=== PATIENT | male | born 1960 | race Caucasian/White ===

== ENCOUNTER 2021-01-31 13:41 | IRF | payer OTHER, SELFPAY ==
--- NOTE | ~2021-01-31 | XR_ITS ---
EXAMINATION: XR barium swallow modified EXAM DATE: 02/08/2021 09:22 INDICATION: Dysphagia. TECHNIQUE: Modified barium esophagram was performed by myself to administered fluoroscopy, in conjun ction with speech pathologist who administered barium in varying consistencies as per speech patholog ist documentation. This was recorded on tape. Pulsed dose reduction fluoroscopy was used with fluor oscopic time of 0.9 minutes. A total of 1 images obtained for the exam. The DAP for this procedure was 0.6 Gycm2. FINDINGS: Oral stage: Adequate function. Pharyngeal phase: Reduced laryngeal elevation. Laryngeal penetration: Demonstrated, thin liquids. Aspiration: None. Laryngeal sensitivity: Inconsistent. IMPRESSION: Oral feedings recommended with limitations as per speech pathologist. Please refer to s artie pathologist findings and specific feeding recommendations. Reviewed, dictated and finalized at location A. IMPRESSION: Oral feedings recommended with limitations as per speech pathologis t. Please refer to speech pathologist findings and specific feeding recommend ations.
--- NOTE | 2021-01-31 13:26 | ADMGEN ---
This patient, Jesus Key, was admitted to [facility] Room 222-02. Patient/family oriented to hospital policies and general routines including ID bracelet, bed and alarms, visiting hours, pain management, procedures, bathroom and other care routines, personal items, smoking policy, room service/diet, and visiting hours. Information on how to activate the Rapid Response Team has been discussed. Patient/Family are encouraged to report perceived risks to care and to ask questions if they do not understand what they are told or what they should do.
[2021-01-31 14:00] VITALS: BP 118/65; PULSE 71; RESP 20; TEMP 36.7; O2SAT 96
[2021-01-31] MEDS: hydrALAZINE HCL 50 MG TABLET PO ×2 (15:30→21:01)
[2021-01-31 15:53] VITALS: BMI 22.6
--- NOTE | 2021-01-31 16:49 | WPDREHABHP ---
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 NIH SS upon arrival was 10. WORKUP CT of the brain showed no acute intracranial hemorrhage and a chronic right occipital lobe infarct. 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 MRI of the brain showed a small acute ischemic infarct in the posterior limb of the left internal capsule. Andi showed no PFO or thrombus. Fes was performed and the patient was placed on pureed diet with nectar thickened liquids. Neurology was consulted and patient was placed on aspirin, Plavix, and Atrovent statin. Patient is severely dysarthric and communicating via white board he is alert and oriented x3. Patient demonstrates dense right UE hemiplegia with mild/mod LE hemipegia. patient has decreased balance and safety awareness. He will be discharged to rehab on Plavix and will remain on Plavix until completing a 21 day course COVID the patient has not traveled outside the [place] her head contact with someone who is ill that has traveled outside the [place] in the past 21 days. Patient has not traveled to an area of the [place] that is experiencing no transmission of Coronavirus and has not had close personal contact with anyone that has. Patient does not have a fever. The patient is not experiencing lower respiratory illness symptoms. The patient tested negative for COVID on 01/22/2021 and 01/30/2021. HISTORY OF PRESENT ILLNESS: The patient's primary rehab impairment category is 0 1-stroke The etiologic diagnosis is left internal capsular infarct I saw this patient [id number] on 01/31/2021 Therapy was initiated at the acute care facility and the patient transferred to us from [facility] on 01/31/2021 FALLS OR SURGERIES: The patient has had [no] major surgeries in the 100 days prior to admission. They had [no] falls in the past year. They had [no] falls with injury in the past year. PRIOR LEVEL OF FUNCTION: Eating was [INDEPENDENT] Oral Care was [INDEPENDENT] Toileting Hygiene was [INDEPENDENT] Shower/Bathing was [INDEPENDENT] Upper Body Dressing was [INDEPENDENT] Lower Body Dressing was [INDEPENDENT] Donning/[place] Footwear was [INDEPENDENT] Rolling Left and Right was [INDEPENDENT] Sit to Lying was [INDEPENDENT] Lying to Sitting was [INDEPENDENT] Sit to Stand was [INDEPENDENT] Bed to Chair Transfers was [INDEPENDENT] Toilet Transfers was [INDEPENDENT] Walking was [INDEPENDENT] [>500 feet] with [NO DEVICE] Wheelchair Mobility was [NOT APPLICABLE PRIOR TO ADMISSION] Stairs were [INDEPENDENT] CURRENT LEVEL OF FUNCTION: Eating was supervision or touching assistance Oral Care was partial to moderate assist Toileting Hygiene was substantial to maximal assist Shower/Bathing was substantial to maximal assist Upper Body Dressing was partial to moderate assist Lower Body Dressing was substantial to maximal assist Donning/[place] Footwear was substantial to maximal assist Rolling Left and Right was partial to moderate assist Sit to Lying was partial to moderate assist Lying to Sitting was partial to moderate assist Sit to Stand was partial to moderate assist Bed to Chair Transfers were partial to moderate assist Toilet Transfers were partial to moderate assist Walking was 20 ft with a ayesha walker and partial to moderate assistance Wheelchair Mobility was not tested Stairs were not tested GOALS: Our therapists will evaluate the patient and establish the goals. However, upon pre-admission screening, the expected goals w
[2021-01-31] MEDS: ATORVASTATIN 40 MG TABLET 80 MG PO (20:53)
[2021-01-31 20:57] VITALS: BP 117/59; PULSE 68; RESP 18; TEMP 36.5; O2SAT 97
[2021-02-01 05:19] VITALS: BP 116/60; PULSE 72; RESP 18; TEMP 36.1; O2SAT 97
[2021-02-01 05:41] LABS: Basophils Absolute Auto 0.2 K/mm3 (0.0-0.1); Basophils Percent Auto 1.9 % (0.2-1.2); Eosinophils Absolute Auto 0.4 K/mm3 (0-0.3); Eosinophils Percent Auto 3.4 % (0-4.4); Hematocrit 52.6 % (42.0-52.0); Hemoglobin 17.6 g/dL (14.0-18.0); Immature Granulocyte Absolute 0.07 K/mm3 (0.00-0.031); Immature Granulocyte Percent A 0.7 % (0-0.5); Lymphocytes Absolute Auto 1.58 K/mm3 (0.9-3.2); Lymphocytes Percent Auto 15.4 % (18.3-44.2); Mean Corpuscular HGB Conc 33.5 g/dl (32-36); Mean Corpuscular Hemoglobin 31.7 pg (26-34); Mean Corpuscular Volume 94.6 fl (80-100); Monocytes Absolute Auto 1.6 K/mm3 (0.1-0.6); Monocytes Percent Auto 15.6 % (2.6-8.5); Neutrophils Absolute Auto 6.5 K/mm3 (1.3-6.7); Platelet Count Result 338 k/mm3 (150-375); Red Blood Count 5.56 M/mm3 (4.6-6.20); Red Cell Distribution Width 12.6 % (11.5-14.5); White Blood Count 10.3 K/mm3 (4.5-10.0)
[2021-02-01 05:51] LABS: Cholesterol 83 mg/dL (0-200); HDL Direct 25 mg/dL; Triglycerides 66 mg/dL (<150)
[2021-02-01 06:02] LABS: LDL Cholesterol Direct 41 mg/dL
[2021-02-01] MEDS: hydrALAZINE HCL 50 MG TABLET PO ×3 (06:23→21:02)
[2021-02-01 06:30] LABS: Alanine Aminotransferase 22 U/L (4-50); Albumin Level 4.2 g/dL (3.5-5.1); Alkaline Phosphatase 73 U/L (38-126); Anion Gap 6 mmol/L (8-16); Aspartate Amino Transferase 28 U/L (17-59); Bilirubin,Total 0.7 mg/dL (0.2-1.3); Blood Urea Nitrogen 42 mg/dL (9-20); Calcium 9.6 mg/dL (8.4-10.2); Carbon Dioxide 31 mmol/L (22-30); Chloride 98 mmol/L (98-107); Estimated CRCL calculation 56 ml/min; Estimated Glomerular Filt Rate > 60; Glucose 94 mg/dL (75-110); Sodium 135 mmol/L (137-145)
[2021-02-01 08:00] VITALS: PULSE 72; RESP 18; O2SAT 97
[2021-02-01] MEDS: amLODIPine BESYLATE 5 MG TABLET 10 MG PO (08:42)
[2021-02-01] MEDS: CLOPIDOGREL BISULFATE 75 MG TABLET PO (08:43)
[2021-02-01] MEDS: FLUoxetine HCL 20 MG CAPSULE PO (08:43)
[2021-02-01] MEDS: ASPIRIN 81 MG CHEWABLE TABLET PO (08:43)
[2021-02-01] MEDS: hydroCHLOROthiazide 25 MG TABLET 50 MG PO (08:43)
[2021-02-01] MEDS: ENOXAPARIN 40 MG/0.4 ML SYRINGE SUB-Q (08:43)
[2021-02-01] MEDS: LOSARTAN POTASSIUM 100 MG TABLET PO (08:43)
[2021-02-01 13:17] VITALS: BMI 22.6
[2021-02-01 14:00] VITALS: BP 114/50; PULSE 65; RESP 18; TEMP 36.1; O2SAT 98
--- NOTE | 2021-02-01 14:05 | PCSTNOTE ---
Please refer to the Bedside Swallow Evaluation in the EMR. Please note, silent aspiration cannot be ruled out at bedside.
--- NOTE | 2021-02-01 17:09 | WPDNEURORHBP ---
Subjective Date/time seen: 02/01/21 17:09 Interval history: 60-year-old gentleman with past medical history of hypertension hyperlipidemia who presented to [facility] on 01/21/2021 with slurred speech and right hemiplegia. MRI of the brain showed a small infarct in the posterior limb of the left internal capsule. Patient was placed on aspirin, Plavix and a statin. Patient is to continue on Plavix for a complete 21 day course. Patient voices no complaints today. Patient able to tolerate 3 hours of therapy. Review of Systems Review of Systems: All systems reviewed & are unremarkable except as noted in HPI and below Functional Status Ambulation Ability Ability to Ambulate 10 Feet: Minimum Assistance X 1 Ability to Ambulate 50 Feet With 2 Turns: Minimum Assistance X 1 Ambulation Assistive Devices: Cane, [place] Exam Narrative: Exam Narrative: Patient is seen at lunch in w/c. Significant right facial droop is noted. Patient is essentially unable to form sentences or single words. There is vocalization. Extraocular muscles are intact neck is supple. Heart rate and rhythm is regular. Lungs are clear. Upper airway congestion noted. Abdomen is was soft nontender left upper and left lower extremity strength are 4+ out of 5 right upper extremity strength is essentially flaccid. Right lower extremity strength is 3/5. Objective Data Vital Signs Vital Signs: Vital Signs - 24 hr 01/31/21 20:57 02/01/21 05:19 02/01/21 08:00 Temperature 36.5 C 36.1 C L Pulse Rate 68 72 72 Respiratory Rate 18 18 18 Blood Pressure 117/59 L 116/60 Pulse Oximetry 97 97 97 02/01/21 14:00 Temperature 36.1 C L Pulse Rate 65 Respiratory Rate 18 Blood Pressure 114/50 L Pulse Oximetry 98 Intake/Output Intake/Output: Intake & Output 01/29/21 01/30/21 01/31/21 02/01/21 23:59 23:59 23:59 23:59 Intake Total 240 480 Balance 240 480 Meds/Results Medications: Active Medications Generic Name Dose Route Start Last Admin Trade Name Freq PRN Reason Stop Dose Admin Amlodipine Besylate 10 mg 02/01/21 09:00 02/01/21 08:42 Amlodipine Besylate 5 Mg Tablet PO 10 mg DAILY LANIE Administration Aspirin 81 mg 02/01/21 09:00 02/01/21 08:43 Aspirin 81 Mg Chewable Tablet PO 81 mg DAILY LANIE Administration Atorvastatin Calcium 80 mg 01/31/21 21:00 01/31/21 20:53 Atorvastatin 40 Mg Tablet PO 80 mg HS LANIE Administration Clopidogrel Bisulfate 75 mg 02/01/21 09:00 02/01/21 08:43 Clopidogrel Bisulfate 75 Mg Tablet PO 02/15/21 09:01 75 mg DAILY LANIE Administration Enoxaparin Sodium 40 mg 02/01/21 09:00 02/01/21 08:43 Enoxaparin 40 Mg/0.4 Ml Syringe SUB-Q 40 mg DAILY LANIE Administration Fluoxetine HCl 20 mg 02/01/21 09:00 02/01/21 08:43 Fluoxetine Hcl 20 Mg Capsule PO 20 mg DAILY LANIE Administration Hydralazine HCl 50 mg 01/31/21 15:20 02/01/21 14:36 Hydralazine Hcl 50 Mg Tablet PO 50 mg Q8HR LANIE Administration Hydrochlorothiazide 50 mg 02/01/21 09:00 02/01/21 08:43 Hydrochlorothiazide 25 Mg Tablet PO 50 mg DAILY LANIE Administration Losartan Potassium 100 mg 02/01/21 09:00 02/01/21 08:43 Losartan Potassium 100 Mg Tablet PO 100 mg DAILY LANIE Administration Labs Labs: Laboratory Results - last 24 hr 02/01/21 02/01/21 02/01/21 04:31 04:31 04:31 WBC 10.3 H RBC 5.56 Hgb 17.6 Hct 52.6 H MCV 94.6 MCH 31.7 MCHC 33.5 RDW 12.6 Plt Count 338 MPV 10.0 Immature Gran % (Auto) 0.7 H Neut % (Auto) 63.0 Lymph % (Auto) 15.4 L Patrick % (Auto) 15.6 H Eos % (Auto) 3.4 Baso % (Auto) 1.9 H Lymph # (Auto) 1.58 Patrick # (Auto) 1.6 H Eos # (Auto) 0.4 H Baso # (Auto) 0.2 H Abs Immat Gran (auto) 0.07 H Absolute Neuts (auto) 6.5 Absolute Nucleated RBC 0.0 Nucleated RBC % 0.0 Sodium 135 L Potassium 4.0 Chloride 98 Carbon Dioxide 31 H Anion Gap 6 L BUN 42 H C
--- NOTE | 2021-02-01 18:12 | RPD ---
INDIVIDUALIZED PLAN OF CARE FOR Jesus Key Brief Synthesis of Pre-Admission Screen, Post-Admission Evaluation and Therapy Evaluations: The patient presents to rehab with left internal capsule infarct. Comorbidities include hypertension, hyperlipidemia, right-sided weakness, dysarthria, facial droop, and dysphagia. The complexity of the patient's medical management, nursing, and therapy needs require an inpatient rehab hospital stay with a physician-led interdisciplinary team approach. The patient?s needs will be best met in an intensive program vs. at a lower level of care. The patient requires physician services for medical oversight and coordination of care. Emotional needs will be monitored as depression is a common sequelae of stroke. The patient needs physician monitoring and treatment of hypertension, dysphagia, monitoring for adverse reactions to new medications, monitoring of infection, and pain control. The patient requires nursing services for frequent neuro checks, anticoagulation therapy, medication management and education, pressure relief and skin care management, monitoring of labs, and fall/safety precautions. The patient will participate in stroke-specific education regarding risk modification to decrease the risk of further stroke; the family will also be invited to participate. Deficits include:ADLs, Balance, Cognition, Endurance, Family Training/Education, Mobility, ROM, Safety, Speech, Strength, Swallowing, Transfers Drug Discovery Informatics Specialist/Case Management for: Discharge Planning and Patient/Family Counseling Physical Therapy: 5 days per week for 60 minutes. Treatments may include: Therapeutic Exercise, Gait Training, Neuromuscular Re-education, Transfer Training, Community Reintegration, Bed Mobility, Patient/Family Education, Wheelchair Mobility Group Therapy/Concurrent Therapy Rationales: -Improve attention span during functional activities in a distracted environment. -Enhance problem solving and/or adequate judgment skills during functional activities in a distracted environment. -Promote increased safety awareness in a distracted environment to reduce fall risk with functional tasks, transfers, and ambulation to allow a more safe, self-sufficient return to the home environment. -Improve dynamic balance skills to promote safety and independence with functional activities in a distracted environment for maximum gain. Occupational Therapy: 5 days per week for 60 minutes. Treatments may include: Therapeutic Exercise, Therapeutic Activity, Cognitive Training, Self-Care Transfer Training, Community Reintegration, Home Management, Patient/Family Education, Wheelchair Mobility Training, Energy Conservation Training Group Therapy/Concurrent Therapy Rationales: -Allow therapist to observe and teach generalization and carry-over of skills learned in individual therapy. -Enhance problem solving and sequencing skills during therapeutic activities in a distracted environment. -Promote increased safety awareness in a realistic setting to reduce fall risk with functional tasks due to visual and verbal distractions. -Increase functional level with ADLs, ADL transfers and use of adaptive equipment through therapeutic activities with others while promoting safety to allow a more safe, self-sufficient return home. Speech Therapy: 5 days per week for 60 minutes. Treatments may include: Dysphasia Therapy, Speech/Language/Communication Therapy, Cognitive Training, Patient/Family Education Group Therapy/Concurrent Therapy - Rationale: -Allow therapist to observe and teach generalization and carry-over of skills learned in individual therapy. -Improve comprehension skills with complex or abstract ideas through discussion in a realistic setting. -Enhance problem solving skills with complex issues during activities in a distracted environment. -Promote increased memory skills and concentration in a distracted environment for a safe transition home. -Improve attention and
[2021-02-01 20:00] VITALS: PULSE 69; RESP 16; O2SAT 97
[2021-02-01] MEDS: ATORVASTATIN 40 MG TABLET 80 MG PO (21:02)
[2021-02-01 21:29] VITALS: BP 121/71; PULSE 69; RESP 16; TEMP 36.7; O2SAT 97
[2021-02-02 05:16] VITALS: BP 119/67; PULSE 79; RESP 16; TEMP 36.3; O2SAT 99
[2021-02-02] MEDS: hydrALAZINE HCL 50 MG TABLET PO ×2 (06:20→15:17)
[2021-02-02] MEDS: CLOPIDOGREL BISULFATE 75 MG TABLET PO (07:52)
[2021-02-02] MEDS: ASPIRIN 81 MG CHEWABLE TABLET PO (07:52)
[2021-02-02] MEDS: hydroCHLOROthiazide 25 MG TABLET 50 MG PO (07:53)
[2021-02-02] MEDS: amLODIPine BESYLATE 5 MG TABLET 10 MG PO (07:53)
[2021-02-02] MEDS: FLUoxetine HCL 20 MG CAPSULE PO (07:53)
[2021-02-02] MEDS: LOSARTAN POTASSIUM 100 MG TABLET PO (07:53)
[2021-02-02] MEDS: ENOXAPARIN 40 MG/0.4 ML SYRINGE SUB-Q (07:54)
--- NOTE | 2021-02-02 09:34 | WPDNEURORHBP ---
Subjective Date/time seen: 02/02/21 09:34 Interval history: 60-year-old gentleman with past medical history of hypertension hyperlipidemia who presented to [facility] on 01/21/2021 with slurred speech and right hemiplegia. MRI of the brain showed a small infarct in the posterior limb of the left internal capsule. Patient was placed on aspirin, Plavix and a statin. Patient is to continue on Plavix for a complete 21 day course. Patient wanting to eat in room. Patient has demonstrated good feeding technique without s/s of aspiration. Patient may eat in his room. Patient able to tolerate 3 hours of therapy. Review of Systems Review of Systems: All systems reviewed & are unremarkable except as noted in HPI and below Functional Status Ambulation Ability Ability to Ambulate 10 Feet: Minimum Assistance X 1 Ability to Ambulate 50 Feet With 2 Turns: Minimum Assistance X 1 Ambulation Assistive Devices: Cane, [place] Exam Narrative: Exam Narrative: Patient is seen at lunch in w/c. Significant right facial droop is noted. Patient is essentially unable to form sentences or single words. There is vocalization. Extraocular muscles are intact neck is supple. Heart rate and rhythm is regular. Lungs are clear. Upper airway congestion noted. Abdomen is was soft nontender left upper and left lower extremity strength are 4+ out of 5 right upper extremity strength is essentially flaccid. Right lower extremity strength is 3/5. Minimal subluxation present Objective Data Vital Signs Vital Signs: Vital Signs - 24 hr 02/01/21 14:00 02/01/21 20:00 02/01/21 21:29 Temperature 36.1 C L 36.7 C Pulse Rate 65 69 69 Respiratory Rate 18 16 16 Blood Pressure 114/50 L 121/71 Pulse Oximetry 98 97 97 02/02/21 05:16 Temperature 36.3 C L Pulse Rate 79 Respiratory Rate 16 Blood Pressure 119/67 Pulse Oximetry 99 Intake/Output Intake/Output: Intake & Output 01/30/21 01/31/21 02/01/21 02/02/21 23:59 23:59 23:59 23:59 Intake Total 240 720 240 Balance 240 720 240 Meds/Results Medications: Active Medications Generic Name Dose Route Start Last Admin Trade Name Freq PRN Reason Stop Dose Admin Amlodipine Besylate 10 mg 02/01/21 09:00 02/02/21 07:53 Amlodipine Besylate 5 Mg Tablet PO 10 mg DAILY LANIE Administration Aspirin 81 mg 02/01/21 09:00 02/02/21 07:52 Aspirin 81 Mg Chewable Tablet PO 81 mg DAILY LANIE Administration Atorvastatin Calcium 80 mg 01/31/21 21:00 02/01/21 21:02 Atorvastatin 40 Mg Tablet PO 80 mg HS LANIE Administration Clopidogrel Bisulfate 75 mg 02/01/21 09:00 02/02/21 07:52 Clopidogrel Bisulfate 75 Mg Tablet PO 02/15/21 09:01 75 mg DAILY LANIE Administration Enoxaparin Sodium 40 mg 02/01/21 09:00 02/02/21 07:54 Enoxaparin 40 Mg/0.4 Ml Syringe SUB-Q 40 mg DAILY LANIE Administration Fluoxetine HCl 20 mg 02/01/21 09:00 02/02/21 07:53 Fluoxetine Hcl 20 Mg Capsule PO 20 mg DAILY LANIE Administration Hydralazine HCl 50 mg 01/31/21 15:20 02/02/21 06:20 Hydralazine Hcl 50 Mg Tablet PO 50 mg Q8HR LANIE Administration Hydrochlorothiazide 50 mg 02/01/21 09:00 02/02/21 07:53 Hydrochlorothiazide 25 Mg Tablet PO 50 mg DAILY LANIE Administration Losartan Potassium 100 mg 02/01/21 09:00 02/02/21 07:53 Losartan Potassium 100 Mg Tablet PO 100 mg DAILY LANIE Administration Progress Note: A&P Assessment and Plan (1) CVA (cerebral vascular accident): Code(s): I63.9 - Cerebral infarction, unspecified Status: Acute Assessment and Plan: Stroke is being treated with Plavix until 21 day full course along with aspirin and a statin. Patient will receive PT OT speech (2) Dysphagia: Code(s): R13.10 - Dysphagia, unspecified Status: Acute Assessment and Plan: patient is on a pureed diet with nectar thickened liquids. Speech will continue to work with oral motor exercises and speech. Goal is to i
[2021-02-02 14:00] VITALS: BP 105/52; PULSE 75; RESP 18; TEMP 36.7; O2SAT 97
[2021-02-02 20:30] VITALS: PULSE 69; RESP 16; O2SAT 98
[2021-02-02] MEDS: ATORVASTATIN 40 MG TABLET 80 MG PO (21:05)
[2021-02-02] MEDS: MELATONIN 3 MG TABLET PO (21:05)
[2021-02-02 22:00] VITALS: BP 107/51; PULSE 69; RESP 16; TEMP 36.4; O2SAT 98
[2021-02-03] MEDS: hydrALAZINE HCL 50 MG TABLET PO ×2 (05:47→14:49)
[2021-02-03 06:00] VITALS: BP 121/51; PULSE 60; RESP 16; TEMP 36.1; O2SAT 97
[2021-02-03] MEDS: amLODIPine BESYLATE 5 MG TABLET 10 MG PO (09:13)
[2021-02-03] MEDS: ASPIRIN 81 MG CHEWABLE TABLET PO (09:13)
[2021-02-03] MEDS: FLUoxetine HCL 20 MG CAPSULE PO (09:13)
[2021-02-03] MEDS: ENOXAPARIN 40 MG/0.4 ML SYRINGE SUB-Q (09:13)
[2021-02-03] MEDS: hydroCHLOROthiazide 25 MG TABLET 50 MG PO (09:13)
[2021-02-03] MEDS: CLOPIDOGREL BISULFATE 75 MG TABLET PO (09:13)
[2021-02-03] MEDS: LOSARTAN POTASSIUM 100 MG TABLET PO (09:13)
--- NOTE | 2021-02-03 09:21 | WPDNEURORHBP ---
Subjective Date/time seen: 02/03/21 09:21 Interval history: 60-year-old gentleman with past medical history of hypertension hyperlipidemia who presented to [facility] on 01/21/2021 with slurred speech and right hemiplegia. MRI of the brain showed a small infarct in the posterior limb of the left internal capsule. Patient was placed on aspirin, Plavix and a statin. Patient is to continue on Plavix for a complete 21 day course. Patient wanting to eat in room. Patient has demonstrated good feeding technique without s/s of aspiration. Patient may eat in his room. Patient able to tolerate 3 hours of therapy. Patient states that he did not sleep well last night. Nursing reports that patient had a sound night sleep. Review of Systems Review of Systems: All systems reviewed & are unremarkable except as noted in HPI and below Functional Status Ambulation Ability Ability to Ambulate 10 Feet: Minimum Assistance X 1 Ability to Ambulate 50 Feet With 2 Turns: Minimum Assistance X 1 Ambulation Assistive Devices: Cane, [place] Exam Narrative: Exam Narrative: Patient is seen in w/c. Significant right facial droop is noted. Patient is beginning to form single words and is making his needs known. There is vocalization but dysarthria is severe. Extraocular muscles are intact Neck is supple. Heart rate and rhythm is regular. Lungs are clear. Abdomen is was soft nontender Left upper and left lower extremity strength are 4+ out of 5 right upper extremity strength is essentially flaccid. Right lower extremity strength is 3/5. Minimal subluxation present Objective Data Vital Signs Vital Signs: Vital Signs - 24 hr 02/02/21 14:00 02/02/21 20:30 02/02/21 22:00 Temperature 36.7 C 36.4 C L Pulse Rate 75 69 69 Respiratory Rate 18 16 16 Blood Pressure 105/52 L 107/51 L Pulse Oximetry 97 98 98 02/03/21 06:00 Temperature 36.1 C L Pulse Rate 60 Respiratory Rate 16 Blood Pressure 121/51 L Pulse Oximetry 97 Intake/Output Intake/Output: Intake & Output 01/31/21 02/01/21 02/02/21 02/03/21 23:59 23:59 23:59 23:59 Intake Total 240 720 720 240 Balance 240 720 720 240 Meds/Results Medications: Active Medications Generic Name Dose Route Start Last Admin Trade Name Freq PRN Reason Stop Dose Admin Amlodipine Besylate 10 mg 02/01/21 09:00 02/03/21 09:13 Amlodipine Besylate 5 Mg Tablet PO 10 mg DAILY ALNIE Administration Aspirin 81 mg 02/01/21 09:00 02/03/21 09:13 Aspirin 81 Mg Chewable Tablet PO 81 mg DAILY LANIE Administration Atorvastatin Calcium 80 mg 01/31/21 21:00 02/02/21 21:05 Atorvastatin 40 Mg Tablet PO 80 mg HS LANIE Administration Clopidogrel Bisulfate 75 mg 02/01/21 09:00 02/03/21 09:13 Clopidogrel Bisulfate 75 Mg Tablet PO 02/15/21 09:01 75 mg DAILY LANIE Administration Enoxaparin Sodium 40 mg 02/01/21 09:00 02/03/21 09:13 Enoxaparin 40 Mg/0.4 Ml Syringe SUB-Q 40 mg DAILY LANIE Administration Fluoxetine HCl 20 mg 02/01/21 09:00 02/03/21 09:13 Fluoxetine Hcl 20 Mg Capsule PO 20 mg DAILY LANIE Administration Hydralazine HCl 50 mg 01/31/21 15:20 02/03/21 05:47 Hydralazine Hcl 50 Mg Tablet PO 50 mg Q8HR LANIE Administration Hydrochlorothiazide 50 mg 02/01/21 09:00 02/03/21 09:13 Hydrochlorothiazide 25 Mg Tablet PO 50 mg DAILY LANIE Administration Losartan Potassium 100 mg 02/01/21 09:00 02/03/21 09:13 Losartan Potassium 100 Mg Tablet PO 100 mg DAILY LANIE Administration Melatonin 3 mg 02/02/21 21:00 02/02/21 21:05 Melatonin 3 Mg Tablet PO 3 mg HS LANIE Administration Progress Note: A&P Assessment and Plan (1) CVA (cerebral vascular accident): Code(s): I63.9 - Cerebral infarction, unspecified Status: Acute Assessment and Plan: Stroke is being treated with Plavix until 21 day full course along with aspirin and a statin. Patient will receive PT OT speech (2) Dysphagia: Code(s)
[2021-02-03 14:00] VITALS: BP 101/55; PULSE 54; RESP 18; TEMP 36.5; O2SAT 95
[2021-02-03 19:25] VITALS: BP 128/55; PULSE 80; RESP 16; TEMP 36.4; O2SAT 97
[2021-02-03] MEDS: ATORVASTATIN 40 MG TABLET 80 MG PO (20:47)
[2021-02-03] MEDS: MELATONIN 5 MG TABLET PO (20:47)
[2021-02-03 22:12] VITALS: BP 107/57; PULSE 68; RESP 20; TEMP 36.4; O2SAT 96
[2021-02-04 06:00] VITALS: BP 125/63; PULSE 71; RESP 16; TEMP 36.4; O2SAT 97
[2021-02-04] MEDS: hydrALAZINE HCL 50 MG TABLET PO ×3 (06:15→21:32)
[2021-02-04] MEDS: amLODIPine BESYLATE 5 MG TABLET 10 MG PO (09:04)
[2021-02-04] MEDS: FLUoxetine HCL 20 MG CAPSULE PO (09:05)
[2021-02-04] MEDS: CLOPIDOGREL BISULFATE 75 MG TABLET PO (09:05)
[2021-02-04] MEDS: ENOXAPARIN 40 MG/0.4 ML SYRINGE SUB-Q (09:05)
[2021-02-04] MEDS: ASPIRIN 81 MG CHEWABLE TABLET PO (09:05)
[2021-02-04] MEDS: LOSARTAN POTASSIUM 100 MG TABLET PO (09:06)
[2021-02-04] MEDS: hydroCHLOROthiazide 25 MG TABLET PO (09:06)
[2021-02-04 14:00] VITALS: BP 113/51; PULSE 71; RESP 18; TEMP 36.4; O2SAT 96
--- NOTE | 2021-02-04 15:35 | PCPTNOTE ---
Jesus Key was evaluated for a ayesha cane on 02/04/2021 by this physical therapist. The ayesha cane will resolve patient's mobility limitations and will be used for ADL's within the home. The patient can safely use the ayesha cane. ?The ayesha cane will resolve the patient?s mobility deficits, including right hemiplegia, motor apraxia, and poor balance.
--- NOTE | 2021-02-04 16:32 | WPDNEURORHBP ---
Subjective Date/time seen: 02/04/21 16:32 Interval history: 60-year-old gentleman with past medical history of hypertension hyperlipidemia who presented to [facility] on 01/21/2021 with slurred speech and right hemiplegia. MRI of the brain showed a small infarct in the posterior limb of the left internal capsule. Patient was placed on aspirin, Plavix and a statin. Patient is to continue on Plavix for a complete 21 day course. Patient wanting to eat in room. Patient has demonstrated good feeding technique without s/s of aspiration. Patient may eat in his room. Patient voices no complaints Review of Systems Review of Systems: All systems reviewed & are unremarkable except as noted in HPI and below Functional Status Ambulation Ability Ability to Ambulate 10 Feet: Contact Guard Ability to Ambulate 50 Feet With 2 Turns: Minimum Assistance X 1 Ambulation Assistive Devices: Cane, [place] Transfers Ability Ability to Transfer In/Out of Chair: Minimum Assistance X 1 Exam Narrative: Exam Narrative: Patient is seen in w/c. Significant right facial droop is noted. Patient is beginning to form single words and is making his needs known. There is vocalization but dysarthria is severe. Extraocular muscles are intact Neck is supple. Heart rate and rhythm is regular. Lungs are clear. Abdomen is was soft nontender Left upper and left lower extremity strength are 4+ out of 5 . Right upper extremity strength is returning 2/5. Right lower extremity strength is 3/5. Minimal subluxation present at the shoulder Objective Data Vital Signs Vital Signs: Vital Signs - 24 hr 02/03/21 19:25 02/03/21 22:12 02/04/21 06:00 Temperature 36.4 C 36.4 C L 36.4 C L Pulse Rate 80 68 71 Respiratory Rate 16 20 16 Blood Pressure 128/55 L 107/57 L 125/63 Pulse Oximetry 97 96 97 02/04/21 14:00 Temperature 36.4 C L Pulse Rate 71 Respiratory Rate 18 Blood Pressure 113/51 L Pulse Oximetry 96 Intake/Output Intake/Output: Intake & Output 02/01/21 02/02/21 02/03/21 02/04/21 23:59 23:59 23:59 23:59 Intake Total 720 720 720 480 Balance 720 720 720 480 Meds/Results Medications: Active Medications Generic Name Dose Route Start Last Admin Trade Name Freq PRN Reason Stop Dose Admin Amlodipine Besylate 10 mg 02/01/21 09:00 02/04/21 09:04 Amlodipine Besylate 5 Mg Tablet PO 10 mg DAILY LANIE Administration Aspirin 81 mg 02/01/21 09:00 02/04/21 09:05 Aspirin 81 Mg Chewable Tablet PO 81 mg DAILY LANIE Administration Atorvastatin Calcium 80 mg 01/31/21 21:00 02/03/21 20:47 Atorvastatin 40 Mg Tablet PO 80 mg HS LANIE Administration Clopidogrel Bisulfate 75 mg 02/01/21 09:00 02/04/21 09:05 Clopidogrel Bisulfate 75 Mg Tablet PO 02/15/21 09:01 75 mg DAILY LANIE Administration Enoxaparin Sodium 40 mg 02/01/21 09:00 02/04/21 09:05 Enoxaparin 40 Mg/0.4 Ml Syringe SUB-Q 40 mg DAILY LANIE Administration Fluoxetine HCl 20 mg 02/01/21 09:00 02/04/21 09:05 Fluoxetine Hcl 20 Mg Capsule PO 20 mg DAILY LANIE Administration Hydralazine HCl 50 mg 01/31/21 15:20 02/04/21 14:43 Hydralazine Hcl 50 Mg Tablet PO 50 mg Q8HR LANIE Administration Hydrochlorothiazide 25 mg 02/04/21 09:00 02/04/21 09:06 Hydrochlorothiazide 25 Mg Tablet PO 25 mg DAILY LANIE Administration Losartan Potassium 100 mg 02/01/21 09:00 02/04/21 09:06 Losartan Potassium 100 Mg Tablet PO 100 mg DAILY LANIE Administration Melatonin 5 mg 02/03/21 21:00 02/03/21 20:47 Melatonin 5 Mg Tablet PO 5 mg HS LANIE Administration Progress Note: A&P Assessment and Plan (1) CVA (cerebral vascular accident): Code(s): I63.9 - Cerebral infarction, unspecified Status: Acute Assessment and Plan: Stroke is being treated with Plavix until 21 day full course along with aspirin and a statin. Patient will receive PT OT speech (2) Dysphagia: Code(s): R13.10 - Dysphagia, unspec
[2021-02-04] MEDS: ATORVASTATIN 40 MG TABLET 80 MG PO (21:31)
[2021-02-04] MEDS: MELATONIN 5 MG TABLET PO (21:32)
[2021-02-04 22:00] VITALS: BP 104/46; PULSE 64; RESP 16; TEMP 36.9; O2SAT 97
[2021-02-05 06:00] VITALS: BP 114/64; PULSE 77; RESP 16; TEMP 36.1; O2SAT 99
[2021-02-05] MEDS: hydrALAZINE HCL 50 MG TABLET PO (06:38)
[2021-02-05] MEDS: ENOXAPARIN 40 MG/0.4 ML SYRINGE SUB-Q (09:48)
[2021-02-05] MEDS: LOSARTAN POTASSIUM 100 MG TABLET PO (09:48)
[2021-02-05] MEDS: amLODIPine BESYLATE 5 MG TABLET 10 MG PO (09:48)
[2021-02-05] MEDS: ASPIRIN 81 MG CHEWABLE TABLET PO (09:48)
[2021-02-05] MEDS: hydroCHLOROthiazide 25 MG TABLET PO (09:49)
[2021-02-05] MEDS: CLOPIDOGREL BISULFATE 75 MG TABLET PO (09:49)
[2021-02-05] MEDS: FLUoxetine HCL 20 MG CAPSULE PO (09:49)
[2021-02-05 14:00] VITALS: BP 110/54; PULSE 82; RESP 18; TEMP 36.6; O2SAT 98
--- NOTE | 2021-02-05 15:55 | WPDNEURORHBP ---
Subjective Date/time seen: 02/05/21 15:55 Interval history: 60-year-old gentleman with past medical history of hypertension hyperlipidemia who presented to [facility] on 01/21/2021 with slurred speech and right hemiplegia. MRI of the brain showed a small infarct in the posterior limb of the left internal capsule. Patient was placed on aspirin, Plavix and a statin. Patient is to continue on Plavix for a complete 21 day course. Patient wanting to eat in room. Patient has demonstrated good feeding technique without s/s of aspiration. Patient may eat in his room. Patient voices no complaints Review of Systems Review of Systems: All systems reviewed & are unremarkable except as noted in HPI and below Functional Status Ambulation Ability Ability to Ambulate 10 Feet: Contact Guard Ability to Ambulate 50 Feet With 2 Turns: Contact Guard Ability to Ambulate 150 Feet: Contact Guard Ambulation Assistive Devices: Cane, [place] Transfers Ability Ability to Transfer In/Out of Chair: Minimum Assistance X 1 Exam Narrative: Exam Narrative: Patient is seen in w/c. Significant right facial droop is noted. Patient is beginning to form single words and is making his needs known. There is vocalization but dysarthria is severe. Extraocular muscles are intact Neck is supple. Heart rate and rhythm is regular. Lungs are clear. Abdomen is was soft nontender Left upper and left lower extremity strength are 4+ out of 5 . Right upper extremity strength is returning 2/5. Right lower extremity strength is 3/5. Minimal subluxation present at the shoulder Patient is at standby assistance for bed mobility transfers are minimal assistance patient is ambulating 120 ft with min assist using a [place] cane. Patient requires thickened liquids due to severe deficits in ora motors. ADLs are Min to moderate assistance. patient is currently on soft bite sized meals. He demonstrates moderate to severe verbal communication deficits receptive language is intact. Objective Data Vital Signs Vital Signs: Vital Signs - 24 hr 02/04/21 22:00 02/05/21 06:00 02/05/21 14:00 Temperature 36.9 C 36.1 C L 36.6 C Pulse Rate 64 77 82 Respiratory Rate 16 16 18 Blood Pressure 104/46 L 114/64 110/54 L Pulse Oximetry 97 99 98 Intake/Output Intake/Output: Intake & Output 02/02/21 02/03/21 02/04/21 02/05/21 23:59 23:59 23:59 23:59 Intake Total 720 720 960 480 Balance 720 720 960 480 Meds/Results Medications: Active Medications Generic Name Dose Route Start Last Admin Trade Name Maira PRN Reason Stop Dose Admin Amlodipine Besylate 10 mg 02/01/21 09:00 02/05/21 09:48 Amlodipine Besylate 5 Mg Tablet PO 10 mg DAILY LANIE Administration Aspirin 81 mg 02/01/21 09:00 02/05/21 09:48 Aspirin 81 Mg Chewable Tablet PO 81 mg DAILY LANIE Administration Atorvastatin Calcium 80 mg 01/31/21 21:00 02/04/21 21:31 Atorvastatin 40 Mg Tablet PO 80 mg HS LANIE Administration Clopidogrel Bisulfate 75 mg 02/01/21 09:00 02/05/21 09:49 Clopidogrel Bisulfate 75 Mg Tablet PO 02/15/21 09:01 75 mg DAILY LANIE Administration Enoxaparin Sodium 40 mg 02/01/21 09:00 02/05/21 09:48 Enoxaparin 40 Mg/0.4 Ml Syringe SUB-Q 40 mg DAILY LANIE Administration Fluoxetine HCl 20 mg 02/01/21 09:00 02/05/21 09:49 Fluoxetine Hcl 20 Mg Capsule PO 20 mg DAILY LANIE Administration Hydrochlorothiazide 25 mg 02/04/21 09:00 02/05/21 09:49 Hydrochlorothiazide 25 Mg Tablet PO 25 mg DAILY LANIE Administration Losartan Potassium 100 mg 02/01/21 09:00 02/05/21 09:48 Losartan Potassium 100 Mg Tablet PO 100 mg DAILY LANIE Administration Melatonin 5 mg 02/03/21 21:00 02/04/21 21:32 Melatonin 5 Mg Tablet PO 5 mg HS LANIE Administration Progress Note: A&P Assessment and Plan (1) CVA (cerebral vascular accident): Code(s): I63.9 - Cerebral infarction, unspecified Status: Acute Assessment and Plan:
[2021-02-05 20:00] VITALS: PULSE 70; RESP 18; O2SAT 96
[2021-02-05] MEDS: hydrALAZINE HCL 25 MG TABLET PO (20:53)
[2021-02-05] MEDS: ATORVASTATIN 40 MG TABLET 80 MG PO (20:53)
[2021-02-05] MEDS: MELATONIN 5 MG TABLET PO (20:53)
[2021-02-05 21:29] VITALS: BP 110/60; PULSE 70; RESP 18; TEMP 36.2; O2SAT 96
[2021-02-06 05:35] VITALS: BP 102/53; PULSE 68; RESP 18; TEMP 36.1; O2SAT 95
[2021-02-06] MEDS: hydrALAZINE HCL 25 MG TABLET PO ×3 (06:19→21:43)
[2021-02-06 06:20] VITALS: BP 126/72
[2021-02-06] MEDS: amLODIPine BESYLATE 5 MG TABLET 10 MG PO (09:19)
[2021-02-06] MEDS: FLUoxetine HCL 20 MG CAPSULE PO (09:19)
[2021-02-06] MEDS: ASPIRIN 81 MG CHEWABLE TABLET PO (09:19)
[2021-02-06] MEDS: LOSARTAN POTASSIUM 100 MG TABLET PO (09:19)
[2021-02-06] MEDS: CLOPIDOGREL BISULFATE 75 MG TABLET PO (09:19)
[2021-02-06] MEDS: hydroCHLOROthiazide 25 MG TABLET PO (09:19)
[2021-02-06] MEDS: ENOXAPARIN 40 MG/0.4 ML SYRINGE SUB-Q (09:20)
--- NOTE | 2021-02-06 13:22 | PCDIET ---
Nutrition Follow-Up Complete: Nutrition Diagnosis: Involuntary weight loss related to CVA as evidenced by reported significant weight loss (14 pounds or 9%) over the past few weeks. Nutrition Goal: Patient to consume 75% of meals/supplements or greater. Goal met. Patient consuming 75-100% of meals on soft and bite size, heart healthy diet with level 2 liquids. Receiving Frozen Nutritional Treat with meals and still reports taking consistently. Brief review of Stroke MNT provided; however, while patient was receptive to handouts, he was not interested in further discussion or in depth education. Encouraged adherence to reduce risk of future CVA. Last recorded weight is 63.6 kg. Recommend obtaining new weight. Bowel Motility: Last documented BM on 02/05/21. Labs Reviewed: No new labs available. Meds Noted: Norvasc, Lipitor, Plavix, Hydrochlorothiazide, Hydralazine, Cozaar Additional Notes: No documented skin breakdown. Will continue to monitor with same goal. Nutrition Monitoring and Evaluation: Follow up in 7 days.
--- NOTE | 2021-02-06 13:51 | WPDNEURORHBP ---
Subjective Date/time seen: 02/06/21 13:51 Interval history: 60-year-old gentleman with past medical history of hypertension hyperlipidemia who presented to [facility] on 01/21/2021 with slurred speech and right hemiplegia. MRI of the brain showed a small infarct in the posterior limb of the left internal capsule. Patient was placed on aspirin, Plavix and a statin. Patient is to continue on Plavix for a complete 21 day course. Patient voices no complaints. Son is present to clarify discharge plans Review of Systems Review of Systems: All systems reviewed & are unremarkable except as noted in HPI and below Functional Status Ambulation Ability Ability to Ambulate 10 Feet: Contact Guard Ability to Ambulate 50 Feet With 2 Turns: Contact Guard Ability to Ambulate 150 Feet: Contact Guard Ambulation Assistive Devices: Cane, [place] Transfers Ability Ability to Transfer In/Out of Chair: Contact Guard Exam Narrative: Exam Narrative: Patient is seen in w/c. Significant right facial droop is noted. Patient is forming single and two word phrases and is making his needs known. There is vocalization but dysarthria is severe. Extraocular muscles are intact Neck is supple. Heart rate and rhythm is regular. Lungs are clear. Abdomen is was soft nontender Left upper and left lower extremity strength are 4+ out of 5 . Right upper extremity strength is returning 2/5. Right lower extremity strength is 3/5. Minimal subluxation present at the shoulder Patient is at standby assistance for bed mobility transfers are contact guard patient is ambulating 120 ft with min assist using a [place] cane. Patient requires thickened liquids due to severe deficits in oral motors. ADLs are Min to moderate assistance. Patient is currently on soft bite sized meals. He demonstrates moderate to severe verbal communication deficits receptive language is intact. Objective Data Vital Signs Vital Signs: Vital Signs - 24 hr 02/05/21 14:00 02/05/21 20:00 02/05/21 21:29 Temperature 36.6 C 36.2 C L Pulse Rate 82 70 70 Respiratory Rate 18 18 18 Blood Pressure 110/54 L 110/60 Pulse Oximetry 98 96 96 02/06/21 05:35 02/06/21 06:20 Temperature 36.1 C L Pulse Rate 68 Respiratory Rate 18 Blood Pressure 102/53 L 126/72 Pulse Oximetry 95 Intake/Output Intake/Output: Intake & Output 04/0402/04/21 02/05/21 02/06/21 23:59 23:59 23:59 23:59 Intake Total 720 960 720 480 Balance 720 960 720 480 Meds/Results Medications: Active Medications Generic Name Dose Route Start Last Admin Trade Name Maira PRN Reason Stop Dose Admin Amlodipine Besylate 10 mg 02/01/21 09:00 02/06/21 09:19 Amlodipine Besylate 5 Mg Tablet PO 10 mg DAILY LANIE Administration Aspirin 81 mg 02/01/21 09:00 02/06/21 09:19 Aspirin 81 Mg Chewable Tablet PO 81 mg DAILY LANIE Administration Atorvastatin Calcium 80 mg 01/31/21 21:00 02/05/21 20:53 Atorvastatin 40 Mg Tablet PO 80 mg HS LANIE Administration Clopidogrel Bisulfate 75 mg 02/01/21 09:00 02/06/21 09:19 Clopidogrel Bisulfate 75 Mg Tablet PO 02/15/21 09:01 75 mg DAILY LANIE Administration Enoxaparin Sodium 40 mg 02/01/21 09:00 02/06/21 09:20 Enoxaparin 40 Mg/0.4 Ml Syringe SUB-Q 40 mg DAILY LANIE Administration Fluoxetine HCl 20 mg 02/01/21 09:00 02/06/21 09:19 Fluoxetine Hcl 20 Mg Capsule PO 20 mg DAILY LANIE Administration Hydralazine HCl 25 mg 02/05/21 22:00 02/06/21 06:19 Hydralazine Hcl 25 Mg Tablet PO 25 mg Q8HR LANIE Administration Hydrochlorothiazide 25 mg 02/04/21 09:00 02/06/21 09:19 Hydrochlorothiazide 25 Mg Tablet PO 25 mg DAILY LANIE Administration Losartan Potassium 100 mg 02/01/21 09:00 02/06/21 09:19 Losartan Potassium 100 Mg Tablet PO 100 mg DAILY LANIE Administration Melatonin 5 mg 02/03/21 21:00 02/05/21 20:53 Melatonin 5 Mg Tablet PO 5 mg HS LANIE Administration Progress Note: A&P Asses
[2021-02-06 14:00] VITALS: BP 110/60; PULSE 62; RESP 18; TEMP 36.6; O2SAT 98
[2021-02-06 20:00] VITALS: PULSE 67; RESP 20; O2SAT 97
[2021-02-06 21:38] VITALS: BP 123/66; PULSE 67; RESP 20; TEMP 37.3; O2SAT 97
[2021-02-06] MEDS: ATORVASTATIN 40 MG TABLET 80 MG PO (21:43)
[2021-02-06] MEDS: MELATONIN 5 MG TABLET PO (21:43)
[2021-02-07 05:12] VITALS: BP 123/60; PULSE 64; RESP 16; TEMP 36.5; O2SAT 95
[2021-02-07] MEDS: hydrALAZINE HCL 25 MG TABLET PO ×3 (06:18→19:50)
[2021-02-07] MEDS: ASPIRIN 81 MG CHEWABLE TABLET PO (09:04)
[2021-02-07] MEDS: FLUoxetine HCL 20 MG CAPSULE PO (09:04)
[2021-02-07] MEDS: LOSARTAN POTASSIUM 100 MG TABLET PO (09:04)
[2021-02-07] MEDS: hydroCHLOROthiazide 25 MG TABLET PO (09:04)
[2021-02-07] MEDS: ENOXAPARIN 40 MG/0.4 ML SYRINGE SUB-Q (09:04)
[2021-02-07] MEDS: CLOPIDOGREL BISULFATE 75 MG TABLET PO (09:04)
[2021-02-07] MEDS: amLODIPine BESYLATE 5 MG TABLET 10 MG PO (09:04)
--- NOTE | 2021-02-07 10:50 | WPDNEURORHBP ---
Subjective Date/time seen: 02/07/21 10:50 Interval history: 60-year-old gentleman with past medical history of hypertension hyperlipidemia who presented to [facility] on 01/21/2021 with slurred speech and right hemiplegia. MRI of the brain showed a small infarct in the posterior limb of the left internal capsule. Patient was placed on aspirin, Plavix and a statin. Patient is to continue on Plavix for a complete 21 day course. Patient complains of mild pain to RUE Review of Systems Review of Systems: All systems reviewed & are unremarkable except as noted in HPI and below Functional Status Ambulation Ability Ability to Ambulate 10 Feet: Contact Guard Ability to Ambulate 50 Feet With 2 Turns: Contact Guard Ability to Ambulate 150 Feet: Contact Guard Ambulation Assistive Devices: Cane, [place] Transfers Ability Ability to Transfer In/Out of Chair: Contact Guard Exam Narrative: Exam Narrative: Patient is seen in w/c. Significant right facial droop is noted. Patient is forming single and two word phrases. He is making his needs known. There is vocalization but dysarthria is severe. Extraocular muscles are intact Neck is supple. Heart rate and rhythm is regular. Lungs are clear. Abdomen is was soft nontender Left upper and left lower extremity strength are 4+ out of 5 . Right upper extremity strength is returning 2/5. More motor recovery is noted Right lower extremity strength is 3+/5. Minimal subluxation present at the shoulder Patient is at standby assistance for bed mobility transfers are contact guard patient is ambulating 120 ft with min assist using a [place] cane. Patient requires thickened liquids due to severe deficits in oral motors. ADLs are Min to moderate assistance. Patient is currently on soft bite sized meals. He demonstrates moderate to severe verbal communication deficits receptive language is intact. Objective Data Vital Signs Vital Signs: Vital Signs - 24 hr 02/06/21 14:00 02/06/21 20:00 02/06/21 21:38 Temperature 36.6 C 37.3 C Pulse Rate 62 67 67 Respiratory Rate 18 20 20 Blood Pressure 110/60 123/66 Pulse Oximetry 98 97 97 02/07/21 05:12 Temperature 36.5 C Pulse Rate 64 Respiratory Rate 16 Blood Pressure 123/60 Pulse Oximetry 95 Intake/Output Intake/Output: Intake & Output 02/04/21 02/05/21 02/06/21 02/07/21 23:59 23:59 23:59 23:59 Intake Total 960 720 720 Balance 960 720 720 Meds/Results Medications: Active Medications Generic Name Dose Route Start Last Admin Trade Name Maira PRN Reason Stop Dose Admin Acetaminophen 650 mg 02/06/21 14:12 Acetaminophen 325 Mg Tablet PO Q4H PRN Mild Pain (1-3) or Fever Amlodipine Besylate 10 mg 02/01/21 09:00 02/07/21 09:04 Amlodipine Besylate 5 Mg Tablet PO 10 mg DAILY LANIE Administration Aspirin 81 mg 02/01/21 09:00 02/07/21 09:04 Aspirin 81 Mg Chewable Tablet PO 81 mg DAILY LANIE Administration Atorvastatin Calcium 80 mg 01/31/21 21:00 02/06/21 21:43 Atorvastatin 40 Mg Tablet PO 80 mg HS LANIE Administration Clopidogrel Bisulfate 75 mg 02/01/21 09:00 02/07/21 09:04 Clopidogrel Bisulfate 75 Mg Tablet PO 02/15/21 09:01 75 mg DAILY LANIE Administration Enoxaparin Sodium 40 mg 02/01/21 09:00 02/07/21 09:04 Enoxaparin 40 Mg/0.4 Ml Syringe SUB-Q 40 mg DAILY LANIE Administration Fluoxetine HCl 20 mg 02/01/21 09:00 02/07/21 09:04 Fluoxetine Hcl 20 Mg Capsule PO 20 mg DAILY LANIE Administration Hydralazine HCl 25 mg 02/05/21 22:00 02/07/21 06:18 Hydralazine Hcl 25 Mg Tablet PO 25 mg Q8HR LANIE Administration Hydrochlorothiazide 25 mg 02/04/21 09:00 02/07/21 09:04 Hydrochlorothiazide 25 Mg Tablet PO 25 mg DAILY LANIE Administration Losartan Potassium 100 mg 02/01/21 09:00 02/07/21 09:04 Losartan Potassium 100 Mg Tablet PO 100 mg DAILY LANIE Administration Melatonin 5 mg 02/03/21 21:00 02/06/21 21:43 Melatonin 5 Mg Tab
[2021-02-07 14:00] VITALS: BP 123/55; PULSE 85; RESP 18; TEMP 36.4; O2SAT 94
[2021-02-07] MEDS: ATORVASTATIN 40 MG TABLET 80 MG PO (19:49)
[2021-02-07] MEDS: MELATONIN 5 MG TABLET PO (19:53)
[2021-02-07 20:00] VITALS: PULSE 74; RESP 16; O2SAT 96
[2021-02-07 22:00] VITALS: BP 133/59; PULSE 74; RESP 16; TEMP 36.1; O2SAT 96
[2021-02-08 05:07] VITALS: BP 124/65; PULSE 68; RESP 16; TEMP 36.2; O2SAT 99
[2021-02-08 05:07] LABS: Basophils Absolute Auto 0.2 K/mm3 (0.0-0.1); Basophils Percent Auto 1.8 % (0.2-1.2); Eosinophils Absolute Auto 0.5 K/mm3 (0-0.3); Eosinophils Percent Auto 4.9 % (0-4.4); Hematocrit 50.2 % (42.0-52.0); Hemoglobin 17.1 g/dL (14.0-18.0); Immature Granulocyte Absolute 0.08 K/mm3 (0.00-0.031); Immature Granulocyte Percent A 0.7 % (0-0.5); Lymphocytes Absolute Auto 1.81 K/mm3 (0.9-3.2); Lymphocytes Percent Auto 16.7 % (18.3-44.2); Mean Corpuscular HGB Conc 34.1 g/dl (32-36); Mean Platelet Volume 9.6 fl (7.4-10.4); Monocytes Percent Auto 9.6 % (2.6-8.5); Neutrophils Absolute Auto 7.2 K/mm3 (1.3-6.7); Neutrophils Percent Auto 66.3 % (45.5-73.1); Platelet Count Result 357 k/mm3 (150-375); Red Blood Count 5.34 M/mm3 (4.6-6.20); Red Cell Distribution Width 12.1 % (11.5-14.5); White Blood Count 10.8 K/mm3 (4.5-10.0)
[2021-02-08 05:31] LABS: Alanine Aminotransferase 67 U/L (4-50); Alkaline Phosphatase 74 U/L (38-126); Anion Gap 4 mmol/L (8-16); Aspartate Amino Transferase 46 U/L (17-59); Bilirubin,Total 0.4 mg/dL (0.2-1.3); Blood Urea Nitrogen 32 mg/dL (9-20); Calcium 9.3 mg/dL (8.4-10.2); Carbon Dioxide 39 mmol/L (22-30); Chloride 96 mmol/L (98-107); Estimated CRCL calculation 62 ml/min; Estimated Glomerular Filt Rate > 60; Glucose 101 mg/dL (75-110); Potassium 4.4 mmol/L (3.4-5.0); Sodium 139 mmol/L (137-145)
[2021-02-08] MEDS: hydrALAZINE HCL 25 MG TABLET PO ×3 (05:50→21:08)
[2021-02-08] MEDS: ENOXAPARIN 40 MG/0.4 ML SYRINGE SUB-Q (08:30)
[2021-02-08] MEDS: LOSARTAN POTASSIUM 100 MG TABLET PO (08:32)
[2021-02-08] MEDS: CLOPIDOGREL BISULFATE 75 MG TABLET PO (08:32)
[2021-02-08] MEDS: amLODIPine BESYLATE 5 MG TABLET 10 MG PO (08:32)
[2021-02-08] MEDS: ASPIRIN 81 MG CHEWABLE TABLET PO (08:32)
[2021-02-08] MEDS: hydroCHLOROthiazide 25 MG TABLET PO (08:32)
[2021-02-08] MEDS: FLUoxetine HCL 20 MG CAPSULE PO (08:32)
--- NOTE | 2021-02-08 13:00 | WPDNEURORHBP ---
Subjective Date/time seen: 02/08/21 13:00 Interval history: 60-year-old gentleman with past medical history of hypertension hyperlipidemia who presented to [facility] on 01/21/2021 with slurred speech and right hemiplegia. MRI of the brain showed a small infarct in the posterior limb of the left internal capsule. Patient was placed on aspirin, Plavix and a statin. Patient is to continue on Plavix for a complete 21 day course. Patient in good spirits. No complaints Review of Systems Review of Systems: All systems reviewed & are unremarkable except as noted in HPI and below Functional Status Ambulation Ability Ability to Ambulate 10 Feet: Contact Guard Ability to Ambulate 50 Feet With 2 Turns: Contact Guard Ability to Ambulate 150 Feet: Contact Guard Ambulation Assistive Devices: Cane, [place] Transfers Ability Ability to Transfer In/Out of Chair: Contact Guard Exam Narrative: Exam Narrative: Patient is seen in w/c. Significant right facial droop is noted. Patient is forming single and two word phrases. He is making his needs known. There is vocalization but dysarthria is severe. Extraocular muscles are intact Neck is supple. Heart rate and rhythm is regular. Lungs are clear. Abdomen is was soft nontender Left upper and left lower extremity strength are 4+ out of 5 . Right upper extremity strength is returning 2/5. More motor recovery is noted Right lower extremity strength is 3+/5. Minimal subluxation present at the shoulder MBS was performed today. Unfortunately, patient is not able to advance diet. Patient requires thickened liquids due to severe deficits in oral motors. Patient is currently on soft bite sized meals. He demonstrates moderate to severe verbal communication deficits receptive language is intact. Objective Data Vital Signs Vital Signs: Vital Signs - 24 hr 02/07/21 14:00 02/07/21 20:00 02/07/21 22:00 Temperature 36.4 C L 36.1 C L Pulse Rate 85 74 74 Respiratory Rate 18 16 16 Blood Pressure 123/55 L 133/59 L Pulse Oximetry 94 96 96 02/08/21 05:07 Temperature 36.2 C L Pulse Rate 68 Respiratory Rate 16 Blood Pressure 124/65 Pulse Oximetry 99 Intake/Output Intake/Output: Intake & Output 02/05/21 02/06/21 02/07/21 02/08/21 23:59 23:59 23:59 23:59 Intake Total 720 720 480 240 Balance 720 720 480 240 Meds/Results Medications: Active Medications Generic Name Dose Route Start Last Admin Trade Name Maira PRN Reason Stop Dose Admin Acetaminophen 650 mg 02/06/21 14:12 Acetaminophen 325 Mg Tablet PO Q4H PRN Mild Pain (1-3) or Fever Amlodipine Besylate 10 mg 02/01/21 09:00 02/08/21 08:32 Amlodipine Besylate 5 Mg Tablet PO 10 mg DAILY LANEI Administration Aspirin 81 mg 02/01/21 09:00 02/08/21 08:32 Aspirin 81 Mg Chewable Tablet PO 81 mg DAILY LANIE Administration Atorvastatin Calcium 80 mg 01/31/21 21:00 02/07/21 19:49 Atorvastatin 40 Mg Tablet PO 80 mg HS LANIE Administration Clopidogrel Bisulfate 75 mg 02/01/21 09:00 02/08/21 08:32 Clopidogrel Bisulfate 75 Mg Tablet PO 02/15/21 09:01 75 mg DAILY LANIE Administration Enoxaparin Sodium 40 mg 02/01/21 09:00 02/08/21 08:30 Enoxaparin 40 Mg/0.4 Ml Syringe SUB-Q 40 mg DAILY LANIE Administration Fluoxetine HCl 20 mg 02/01/21 09:00 02/08/21 08:32 Fluoxetine Hcl 20 Mg Capsule PO 20 mg DAILY LANIE Administration Hydralazine HCl 25 mg 02/05/21 22:00 02/08/21 05:50 Hydralazine Hcl 25 Mg Tablet PO 25 mg Q8HR LNAIE Administration Hydrochlorothiazide 25 mg 02/04/21 09:00 02/08/21 08:32 Hydrochlorothiazide 25 Mg Tablet PO 25 mg DAILY LANIE Administration Losartan Potassium 100 mg 02/01/21 09:00 02/08/21 08:32 Losartan Potassium 100 Mg Tablet PO 100 mg DAILY LANIE Administration Melatonin 5 mg 02/03/21 21:00 02/07/21 19:53 Melatonin 5 Mg Tablet PO 5 mg HS LANIE Administration Radiology Results: ITS Impressions
[2021-02-08 14:00] VITALS: BP 108/53; PULSE 82; RESP 16; TEMP 36.4; O2SAT 98
[2021-02-08 20:14] VITALS: BP 114/60; PULSE 59; RESP 18; TEMP 36.3; O2SAT 98
[2021-02-08] MEDS: ATORVASTATIN 40 MG TABLET 80 MG PO (21:08)
[2021-02-08] MEDS: MELATONIN 5 MG TABLET PO (21:08)
[2021-02-09 04:58] VITALS: BP 127/70; PULSE 79; RESP 18; TEMP 36.4; O2SAT 96
[2021-02-09] MEDS: hydrALAZINE HCL 25 MG TABLET PO ×3 (06:04→20:39)
[2021-02-09] MEDS: amLODIPine BESYLATE 5 MG TABLET 10 MG PO (09:00)
[2021-02-09] MEDS: hydroCHLOROthiazide 25 MG TABLET PO (09:01)
[2021-02-09] MEDS: FLUoxetine HCL 20 MG CAPSULE PO (09:01)
[2021-02-09] MEDS: LOSARTAN POTASSIUM 100 MG TABLET PO (09:01)
[2021-02-09] MEDS: ASPIRIN 81 MG CHEWABLE TABLET PO (09:01)
[2021-02-09] MEDS: ENOXAPARIN 40 MG/0.4 ML SYRINGE SUB-Q (09:01)
[2021-02-09] MEDS: CLOPIDOGREL BISULFATE 75 MG TABLET PO (09:01)
--- NOTE | 2021-02-09 09:37 | WPDNEURORHBP ---
Subjective Date/time seen: 02/09/21 09:37 Interval history: 60-year-old gentleman with past medical history of hypertension hyperlipidemia who presented to [facility] on 01/21/2021 with slurred speech and right hemiplegia. MRI of the brain showed a small infarct in the posterior limb of the left internal capsule. Patient was placed on aspirin, Plavix and a statin. Patient is to continue on Plavix for a complete 21 day course. Patient complains of inability to sleep. Patient states that it is due to worry. Review of Systems Review of Systems: All systems reviewed & are unremarkable except as noted in HPI and below Functional Status Ambulation Ability Ability to Ambulate 10 Feet: Contact Guard Ability to Ambulate 50 Feet With 2 Turns: Contact Guard Ability to Ambulate 150 Feet: Contact Guard Ambulation Assistive Devices: Cane, [place] Transfers Ability Ability to Transfer In/Out of Chair: Contact Guard Exam Narrative: Exam Narrative: Patient is seen in w/c. Significant right facial droop is noted. He is making his needs known. There is vocalization but dysarthria is severe. Extraocular muscles are intact Neck is supple. Heart rate and rhythm is regular. Lungs are clear. Abdomen is was soft nontender Left upper and left lower extremity strength are 4+ out of 5 . Right upper extremity strength is returning 2/5. More motor recovery is noted Right lower extremity strength is 3+/5. Minimal subluxation present at the shoulder Patient is starting to speaking in sentences Objective Data Vital Signs Vital Signs: Vital Signs - 24 hr 02/08/21 14:00 02/08/21 20:14 02/09/21 04:58 Temperature 36.4 C L 36.3 C L 36.4 C Pulse Rate 82 59 L 79 Respiratory Rate 16 18 18 Blood Pressure 108/53 L 114/60 127/70 Pulse Oximetry 98 98 96 Intake/Output Intake/Output: Intake & Output 02/06/21 02/07/21 02/08/21 02/09/21 23:59 23:59 23:59 23:59 Intake Total 720 480 720 240 Balance 720 480 720 240 Meds/Results Medications: Active Medications Generic Name Dose Route Start Last Admin Trade Name Freq PRN Reason Stop Dose Admin Acetaminophen 650 mg 02/06/21 14:12 Acetaminophen 325 Mg Tablet PO Q4H PRN Mild Pain (1-3) or Fever Amlodipine Besylate 10 mg 02/01/21 09:00 02/09/21 09:00 Amlodipine Besylate 5 Mg Tablet PO 10 mg DAILY LANIE Administration Aspirin 81 mg 02/01/21 09:00 02/09/21 09:01 Aspirin 81 Mg Chewable Tablet PO 81 mg DAILY LANIE Administration Atorvastatin Calcium 80 mg 01/31/21 21:00 02/08/21 21:08 Atorvastatin 40 Mg Tablet PO 80 mg HS LANIE Administration Clopidogrel Bisulfate 75 mg 02/01/21 09:00 02/09/21 09:01 Clopidogrel Bisulfate 75 Mg Tablet PO 02/15/21 09:01 75 mg DAILY LANIE Administration Enoxaparin Sodium 40 mg 02/01/21 09:00 02/09/21 09:01 Enoxaparin 40 Mg/0.4 Ml Syringe SUB-Q 40 mg DAILY LANIE Administration Fluoxetine HCl 20 mg 02/01/21 09:00 02/09/21 09:01 Fluoxetine Hcl 20 Mg Capsule PO 20 mg DAILY LANIE Administration Hydralazine HCl 25 mg 02/05/21 22:00 02/09/21 06:04 Hydralazine Hcl 25 Mg Tablet PO 25 mg Q8HR LANIE Administration Hydrochlorothiazide 25 mg 02/04/21 09:00 02/09/21 09:01 Hydrochlorothiazide 25 Mg Tablet PO 25 mg DAILY LANIE Administration Losartan Potassium 100 mg 02/01/21 09:00 02/09/21 09:01 Losartan Potassium 100 Mg Tablet PO 100 mg DAILY LANIE Administration Melatonin 5 mg 02/03/21 21:00 02/08/21 21:08 Melatonin 5 Mg Tablet PO 5 mg HS LANIE Administration Radiology Results: ITS Impressions Modified Barium Swallow 02/08/21 09:26 IMPRESSION: Oral feedings recommended with limitations as per speech pathologist. Please refer to speech pathologist findings and specific feeding recommendations. Progress Note: A&P Assessment and Plan (1) CVA (cerebral vascular accident): Code(s): I63.9 - Cerebral infarction, unspecified
[2021-02-09 14:00] VITALS: BP 119/67; PULSE 72; RESP 20; TEMP 36.7; O2SAT 100
--- NOTE | 2021-02-09 14:00 | PCOTNOTE ---
Patient tolerated static standing SBA for table top activity while weight bearing through RUE 5-6 minutes x2 for neuromuscular reeducation. Patient completed tabletop dusting exercises x10 each to develop strength and AROM to support ease with ADL tasks.
[2021-02-09 20:14] VITALS: BP 105/53; PULSE 63; RESP 16; TEMP 36.3; O2SAT 95
[2021-02-09] MEDS: ATORVASTATIN 40 MG TABLET 80 MG PO (20:38)
[2021-02-10 05:30] VITALS: BP 144/66; PULSE 66; RESP 20; TEMP 36.1; O2SAT 95
[2021-02-10] MEDS: hydrALAZINE HCL 25 MG TABLET PO ×2 (06:08→14:12)
[2021-02-10] MEDS: LOSARTAN POTASSIUM 100 MG TABLET PO (08:59)
[2021-02-10] MEDS: ASPIRIN 81 MG CHEWABLE TABLET PO (08:59)
[2021-02-10] MEDS: FLUoxetine HCL 20 MG CAPSULE PO (08:59)
[2021-02-10] MEDS: ENOXAPARIN 40 MG/0.4 ML SYRINGE SUB-Q (08:59)
[2021-02-10] MEDS: hydroCHLOROthiazide 25 MG TABLET PO (08:59)
[2021-02-10] MEDS: amLODIPine BESYLATE 5 MG TABLET 10 MG PO (08:59)
[2021-02-10] MEDS: CLOPIDOGREL BISULFATE 75 MG TABLET PO (09:00)
--- NOTE | 2021-02-10 10:11 | WPDNEURORHBP ---
Subjective Date/time seen: 02/10/21 10:11 Interval history: 60-year-old gentleman with past medical history of hypertension hyperlipidemia who presented to [facility] on 01/21/2021 with slurred speech and right hemiplegia. MRI of the brain showed a small infarct in the posterior limb of the left internal capsule. Patient was placed on aspirin, Plavix and a statin. Patient is to continue on Plavix for a complete 21 day course. Patient complains of inability to sleep. Appetite is good. Patient complains of 5th toe pain while walking with therapy. Son has brought in shoes last week but patient did not like them. Review of Systems Review of Systems: All systems reviewed & are unremarkable except as noted in HPI and below Functional Status Ambulation Ability Ability to Ambulate 10 Feet: Contact Guard Ability to Ambulate 50 Feet With 2 Turns: Contact Guard Ability to Ambulate 150 Feet: Contact Guard Ambulation Assistive Devices: None, Cane and Cane, [place] Transfers Ability Ability to Transfer In/Out of Chair: Contact Guard Exam Narrative: Exam Narrative: Patient is seen in w/c. Significant right facial droop is noted. He is making his needs known. There is vocalization but dysarthria is severe. Extraocular muscles are intact Neck is supple. Heart rate and rhythm is regular. Lungs are clear. Abdomen is was soft nontender Left upper and left lower extremity strength are 4+ out of 5 . Right upper extremity strength is returning 2/5. More motor recovery is noted Right lower extremity strength is 3+/5. Minimal subluxation present at the shoulder Patient is starting to speaking in sentences. Mood is good Objective Data Vital Signs Vital Signs: Vital Signs - 24 hr 02/09/21 14:00 02/09/21 20:14 02/10/21 05:30 Temperature 36.7 C 36.3 C L 36.1 C L Pulse Rate 72 63 66 Respiratory Rate 20 16 20 Blood Pressure 119/67 105/53 L 144/66 H Pulse Oximetry 100 95 95 Intake/Output Intake/Output: Intake & Output 02/07/21 02/08/21 02/09/21 02/10/21 23:59 23:59 23:59 23:59 Intake Total 480 720 720 240 Balance 480 720 720 240 Meds/Results Medications: Active Medications Generic Name Dose Route Start Last Admin Trade Name Freq PRN Reason Stop Dose Admin Acetaminophen 650 mg 02/06/21 14:12 Acetaminophen 325 Mg Tablet PO Q4H PRN Mild Pain (1-3) or Fever Amlodipine Besylate 10 mg 02/01/21 09:00 02/10/21 08:59 Amlodipine Besylate 5 Mg Tablet PO 10 mg DAILY LANIE Administration Aspirin 81 mg 02/01/21 09:00 02/10/21 08:59 Aspirin 81 Mg Chewable Tablet PO 81 mg DAILY LANIE Administration Atorvastatin Calcium 80 mg 01/31/21 21:00 02/09/21 20:38 Atorvastatin 40 Mg Tablet PO 80 mg HS LANIE Administration Clopidogrel Bisulfate 75 mg 02/01/21 09:00 02/10/21 09:00 Clopidogrel Bisulfate 75 Mg Tablet PO 02/15/21 09:01 75 mg DAILY LANIE Administration Enoxaparin Sodium 40 mg 02/01/21 09:00 02/10/21 08:59 Enoxaparin 40 Mg/0.4 Ml Syringe SUB-Q 40 mg DAILY LANIE Administration Fluoxetine HCl 20 mg 02/01/21 09:00 02/10/21 08:59 Fluoxetine Hcl 20 Mg Capsule PO 20 mg DAILY LANIE Administration Hydralazine HCl 25 mg 02/05/21 22:00 02/10/21 06:08 Hydralazine Hcl 25 Mg Tablet PO 25 mg Q8HR LANIE Administration Hydrochlorothiazide 25 mg 02/04/21 09:00 02/10/21 08:59 Hydrochlorothiazide 25 Mg Tablet PO 25 mg DAILY LANIE Administration Losartan Potassium 100 mg 02/01/21 09:00 02/10/21 08:59 Losartan Potassium 100 Mg Tablet PO 100 mg DAILY LANIE Administration Radiology Results: ITS Impressions Modified Barium Swallow 02/08/21 09:26 IMPRESSION: Oral feedings recommended with limitations as per speech pathologist. Please refer to speech pathologist findings and specific feeding recommendations. Progress Note: A&P Assessment and Plan (1) CVA (cerebral vascular accident): Code(s): I63.9 - Cerebral infar
[2021-02-10 14:00] VITALS: BP 108/53; PULSE 76; RESP 16; TEMP 36.3; O2SAT 98
[2021-02-10 20:15] VITALS: PULSE 58; RESP 16; O2SAT 96
[2021-02-10 22:00] VITALS: BP 114/52; PULSE 58; RESP 16; TEMP 36.4; O2SAT 96
[2021-02-10] MEDS: ATORVASTATIN 40 MG TABLET 80 MG PO (22:48)
[2021-02-11 05:59] VITALS: BP 114/64; PULSE 65; RESP 16; TEMP 36.3; O2SAT 97
[2021-02-11] MEDS: hydrALAZINE HCL 25 MG TABLET PO (06:16)
[2021-02-11] MEDS: ENOXAPARIN 40 MG/0.4 ML SYRINGE SUB-Q (09:07)
[2021-02-11] MEDS: FLUoxetine HCL 20 MG CAPSULE PO (09:07)
[2021-02-11] MEDS: ASPIRIN 81 MG CHEWABLE TABLET PO (09:07)
[2021-02-11] MEDS: hydroCHLOROthiazide 25 MG TABLET PO (09:07)
[2021-02-11] MEDS: LOSARTAN POTASSIUM 100 MG TABLET PO (09:07)
[2021-02-11] MEDS: CLOPIDOGREL BISULFATE 75 MG TABLET PO (09:07)
[2021-02-11] MEDS: amLODIPine BESYLATE 5 MG TABLET 10 MG PO (09:07)
--- NOTE | 2021-02-11 10:31 | WPDNEURORHBP ---
Subjective Date/time seen: 02/11/21 10:31 Interval history: 60-year-old gentleman with past medical history of hypertension hyperlipidemia who presented to [facility] on 01/21/2021 with slurred speech and right hemiplegia. MRI of the brain showed a small infarct in the posterior limb of the left internal capsule. Patient was placed on aspirin, Plavix and a statin. Patient is to continue on Plavix for a complete 21 day course. Patient slept well last night. No other complaints noted Review of Systems Review of Systems: All systems reviewed & are unremarkable except as noted in HPI and below Functional Status Ambulation Ability Ability to Ambulate 10 Feet: Standby Assistance Ability to Ambulate 50 Feet With 2 Turns: Standby Assistance Ability to Ambulate 150 Feet: Standby Assistance Ambulation Assistive Devices: Cane, [place] Transfers Ability Ability to Transfer In/Out of Chair: Standby Assistance Exam Narrative: Exam Narrative: Patient is seen in w/c. Significant right facial droop is noted. He is making his needs known. There is vocalization but dysarthria is severe. Extraocular muscles are intact Neck is supple. Heart rate and rhythm is regular. Lungs are clear. Abdomen is was soft nontender Left upper and left lower extremity strength are 4+ out of 5 . Right upper extremity strength is returning 2+/5. More motor recovery is noted Right lower extremity strength is 3+/5. Minimal subluxation present at the shoulder Patient is starting to speaking in sentences. Mood is good Objective Data Vital Signs Vital Signs: Vital Signs - 24 hr 02/10/21 14:00 02/10/21 20:15 02/10/21 22:00 Temperature 36.3 C L 36.4 C L Pulse Rate 76 58 L 58 L Respiratory Rate 16 16 16 Blood Pressure 108/53 L 114/52 L Pulse Oximetry 98 96 96 02/11/21 05:59 Temperature 36.3 C L Pulse Rate 65 Respiratory Rate 16 Blood Pressure 114/64 Pulse Oximetry 97 Intake/Output Intake/Output: Intake & Output 02/08/21 02/09/21 02/10/21 02/11/21 23:59 23:59 23:59 23:59 Intake Total 720 720 720 Balance 720 720 720 Meds/Results Medications: Active Medications Generic Name Dose Route Start Last Admin Trade Name Freq PRN Reason Stop Dose Admin Acetaminophen 650 mg 02/06/21 14:12 Acetaminophen 325 Mg Tablet PO Q4H PRN Mild Pain (1-3) or Fever Amlodipine Besylate 10 mg 02/01/21 09:00 02/11/21 09:07 Amlodipine Besylate 5 Mg Tablet PO 10 mg DAILY LANIE Administration Aspirin 81 mg 02/01/21 09:00 02/11/21 09:07 Aspirin 81 Mg Chewable Tablet PO 81 mg DAILY LANIE Administration Atorvastatin Calcium 80 mg 01/31/21 21:00 02/10/21 22:48 Atorvastatin 40 Mg Tablet PO 80 mg HS LANIE Administration Clopidogrel Bisulfate 75 mg 02/01/21 09:00 02/11/21 09:07 Clopidogrel Bisulfate 75 Mg Tablet PO 02/15/21 09:01 75 mg DAILY LANIE Administration Enoxaparin Sodium 40 mg 02/01/21 09:00 02/11/21 09:07 Enoxaparin 40 Mg/0.4 Ml Syringe SUB-Q 40 mg DAILY LANIE Administration Fluoxetine HCl 20 mg 02/01/21 09:00 02/11/21 09:07 Fluoxetine Hcl 20 Mg Capsule PO 20 mg DAILY LANIE Administration Hydralazine HCl 25 mg 02/05/21 22:00 02/11/21 06:16 Hydralazine Hcl 25 Mg Tablet PO 25 mg Q8HR LANIE Administration Hydrochlorothiazide 25 mg 02/04/21 09:00 02/11/21 09:07 Hydrochlorothiazide 25 Mg Tablet PO 25 mg DAILY LANIE Administration Losartan Potassium 100 mg 02/01/21 09:00 02/11/21 09:07 Losartan Potassium 100 Mg Tablet PO 100 mg DAILY LANIE Administration Radiology Results: ITS Impressions Modified Barium Swallow 02/08/21 09:26 IMPRESSION: Oral feedings recommended with limitations as per speech pathologist. Please refer to speech pathologist findings and specific feeding recommendations. Progress Note: A&P Assessment and Plan (1) CVA (cerebral vascular accident): Code(s): I63.9 - Cerebral infarction, unspecified
--- NOTE | 2021-02-11 13:14 | PCOTNOTE ---
Mr. Key was evaluated for a tub seat with back on 02/11/21 by this occupational therapist.? The tub seat with back will resolve patient's bathing limitations and will be used for bathing in his home. The patient can safely use the tub seat with back. The tub seat with back will allow the patient to safely complete all bathing tasks and decrease caregiver burden as the patient is unable to safely nail making machine tender shower for bathing due to CVA with RT upper and lower extremity weakness.
[2021-02-11 14:00] VITALS: BP 145/54; PULSE 76; RESP 16; TEMP 36.7; O2SAT 100
[2021-02-11] MEDS: ATORVASTATIN 40 MG TABLET 80 MG PO (20:37)
[2021-02-11 21:49] VITALS: BP 146/60; PULSE 62; RESP 16; TEMP 36.1; O2SAT 96
[2021-02-12 06:00] VITALS: BP 118/55; PULSE 64; RESP 16; TEMP 36.1; O2SAT 96
[2021-02-12] MEDS: CLOPIDOGREL BISULFATE 75 MG TABLET PO (08:33)
[2021-02-12] MEDS: amLODIPine BESYLATE 5 MG TABLET 10 MG PO (08:33)
[2021-02-12] MEDS: ASPIRIN 81 MG CHEWABLE TABLET PO (08:33)
[2021-02-12] MEDS: FLUoxetine HCL 20 MG CAPSULE PO (08:34)
[2021-02-12] MEDS: LOSARTAN POTASSIUM 100 MG TABLET PO (08:34)
[2021-02-12] MEDS: ENOXAPARIN 40 MG/0.4 ML SYRINGE SUB-Q (08:34)
[2021-02-12] MEDS: hydroCHLOROthiazide 25 MG TABLET PO (08:34)
[2021-02-12 14:00] VITALS: BP 110/60; PULSE 74; RESP 16; TEMP 35.8; O2SAT 100
--- NOTE | 2021-02-12 14:58 | WPDNEURORHBP ---
Subjective Date/time seen: 02/12/21 14:58 Interval history: 60-year-old gentleman with past medical history of hypertension hyperlipidemia who presented to [facility] on 01/21/2021 with slurred speech and right hemiplegia. MRI of the brain showed a small infarct in the posterior limb of the left internal capsule. Patient was placed on aspirin, Plavix and a statin. Patient is to continue on Plavix for a complete 21 day course. Patient slept well last night. No other complaints noted Functional Status Ambulation Ability Ability to Ambulate 10 Feet: Standby Assistance Ability to Ambulate 50 Feet With 2 Turns: Standby Assistance Ability to Ambulate 150 Feet: Standby Assistance Ambulation Assistive Devices: Cane, [place] Transfers Ability Ability to Transfer In/Out of Chair: Standby Assistance Exam Narrative: Exam Narrative: Patient is seen in w/c. Significant right facial droop is noted. He is making his needs known. There is vocalization but dysarthria is severe. Extraocular muscles are intact Neck is supple. Heart rate and rhythm is regular. Lungs are clear. Abdomen is was soft nontender Left upper and left lower extremity strength are 4+ out of 5 . Right upper extremity strength is returning 2+/5. More motor recovery is noted Right lower extremity strength is 3+/5. Minimal subluxation present at the shoulder Patient is starting to speaking in sentences. Mood is good Objective Data Vital Signs Vital Signs: Vital Signs - 24 hr 02/11/21 21:49 02/12/21 06:00 02/12/21 14:00 Temperature 36.1 C L 36.1 C L 35.8 C L Pulse Rate 62 64 74 Respiratory Rate 16 16 16 Blood Pressure 146/60 H 118/55 L 110/60 Pulse Oximetry 96 96 100 Intake/Output Intake/Output: Intake & Output 02/09/21 02/10/21 02/11/21 02/12/21 23:59 23:59 23:59 23:59 Intake Total 720 720 480 Balance 720 720 480 Meds/Results Medications: Active Medications Generic Name Dose Route Start Last Admin Trade Name Freq PRN Reason Stop Dose Admin Acetaminophen 650 mg 02/06/21 14:12 Acetaminophen 325 Mg Tablet PO Q4H PRN Mild Pain (1-3) or Fever Amlodipine Besylate 10 mg 02/01/21 09:00 02/12/21 08:33 Amlodipine Besylate 5 Mg Tablet PO 10 mg DAILY LANIE Administration Aspirin 81 mg 02/01/21 09:00 02/12/21 08:33 Aspirin 81 Mg Chewable Tablet PO 81 mg DAILY LANIE Administration Atorvastatin Calcium 80 mg 01/31/21 21:00 02/11/21 20:37 Atorvastatin 40 Mg Tablet PO 80 mg HS LANIE Administration Clopidogrel Bisulfate 75 mg 02/01/21 09:00 02/12/21 08:33 Clopidogrel Bisulfate 75 Mg Tablet PO 02/15/21 09:01 75 mg DAILY LANIE Administration Enoxaparin Sodium 40 mg 02/01/21 09:00 02/12/21 08:34 Enoxaparin 40 Mg/0.4 Ml Syringe SUB-Q 40 mg DAILY LANIE Administration Fluoxetine HCl 20 mg 02/01/21 09:00 02/12/21 08:34 Fluoxetine Hcl 20 Mg Capsule PO 20 mg DAILY LANIE Administration Hydralazine HCl 25 mg 02/05/21 22:00 02/11/21 06:16 Hydralazine Hcl 25 Mg Tablet PO 25 mg Q8HR LANIE Administration Hydrochlorothiazide 25 mg 02/04/21 09:00 02/12/21 08:34 Hydrochlorothiazide 25 Mg Tablet PO 25 mg DAILY LANIE Administration Losartan Potassium 100 mg 02/01/21 09:00 02/12/21 08:34 Losartan Potassium 100 Mg Tablet PO 100 mg DAILY LANIE Administration Radiology Results: ITS Impressions Modified Barium Swallow 02/08/21 09:26 IMPRESSION: Oral feedings recommended with limitations as per speech pathologist. Please refer to speech pathologist findings and specific feeding recommendations. Progress Note: A&P Assessment and Plan (1) CVA (cerebral vascular accident): Code(s): I63.9 - Cerebral infarction, unspecified Status: Acute Assessment and Plan: Stroke is being treated with Plavix until 21 day full course along with aspirin and a statin. Patient will receive PT OT speech (2) Dysphagia: Code(s): R13.10 - Dysp
[2021-02-12 21:53] VITALS: BP 105/57; PULSE 67; RESP 16; TEMP 36.5; O2SAT 93
[2021-02-12] MEDS: ATORVASTATIN 40 MG TABLET 80 MG PO (22:22)
[2021-02-13 06:00] VITALS: BP 116/61; PULSE 87; RESP 16; TEMP 36.9; O2SAT 98
[2021-02-13 08:00] VITALS: PULSE 78; RESP 16; O2SAT 100
[2021-02-13 08:07] VITALS: BP 139/66; PULSE 78; O2SAT 100
[2021-02-13] MEDS: amLODIPine BESYLATE 5 MG TABLET 10 MG PO (08:17)
[2021-02-13] MEDS: ASPIRIN 81 MG CHEWABLE TABLET PO (08:18)
[2021-02-13] MEDS: FLUoxetine HCL 20 MG CAPSULE PO (08:18)
[2021-02-13] MEDS: CLOPIDOGREL BISULFATE 75 MG TABLET PO (08:18)
[2021-02-13] MEDS: hydroCHLOROthiazide 25 MG TABLET PO (08:18)
[2021-02-13] MEDS: LOSARTAN POTASSIUM 100 MG TABLET PO (08:19)
--- NOTE | 2021-02-13 09:50 | WPDNEURORHBP ---
Subjective Date/time seen: 02/13/21 09:50 Interval history: 60-year-old gentleman with past medical history of hypertension hyperlipidemia who presented to [facility] on 01/21/2021 with slurred speech and right hemiplegia. MRI of the brain showed a small infarct in the posterior limb of the left internal capsule. Patient was placed on aspirin, Plavix and a statin. Patient is to continue on Plavix for a complete 21 day course. Patient voices no concerns regarding discharge this week. Patient denies pain. Review of Systems Review of Systems: All systems reviewed & are unremarkable except as noted in HPI and below Functional Status Ambulation Ability Ability to Ambulate 10 Feet: Standby Assistance Ability to Ambulate 50 Feet With 2 Turns: Standby Assistance Ability to Ambulate 150 Feet: Standby Assistance Ambulation Assistive Devices: Cane, [place] Transfers Ability Ability to Transfer In/Out of Chair: Standby Assistance Exam Narrative: Exam Narrative: Patient is seen in w/c. Improving right facial droop is noted. There is vocalization but dysarthria is severe. Extraocular muscles are intact Neck is supple. Heart rate and rhythm is regular. Lungs are clear. Abdomen is was soft nontender Left upper and left lower extremity strength are 4+ out of 5 . Right upper extremity strength is returning 2+/5. More motor recovery is noted Right lower extremity strength is 3+/5. Minimal subluxation present at the shoulder Patient is starting to speaking in sentences. Mood is good Objective Data Vital Signs Vital Signs: Vital Signs - 24 hr 02/12/21 14:00 02/12/21 21:53 02/13/21 06:00 Temperature 35.8 C L 36.5 C 36.9 C Pulse Rate 74 67 87 Respiratory Rate 16 16 16 Blood Pressure 110/60 105/57 L 116/61 Pulse Oximetry 100 93 98 02/13/21 08:07 Temperature Pulse Rate 78 Respiratory Rate Blood Pressure 139/66 Pulse Oximetry 100 Intake/Output Intake/Output: Intake & Output 02/10/21 02/11/21 02/12/21 02/13/21 23:59 23:59 23:59 23:59 Intake Total 720 480 240 240 Balance 720 480 240 240 Meds/Results Medications: Active Medications Generic Name Dose Route Start Last Admin Trade Name Freq PRN Reason Stop Dose Admin Acetaminophen 650 mg 02/06/21 14:12 Acetaminophen 325 Mg Tablet PO Q4H PRN Mild Pain (1-3) or Fever Amlodipine Besylate 10 mg 02/01/21 09:00 02/13/21 08:17 Amlodipine Besylate 5 Mg Tablet PO 10 mg DAILY LANIE Administration Aspirin 81 mg 02/01/21 09:00 02/13/21 08:18 Aspirin 81 Mg Chewable Tablet PO 81 mg DAILY LANIE Administration Atorvastatin Calcium 80 mg 01/31/21 21:00 02/12/21 22:22 Atorvastatin 40 Mg Tablet PO 80 mg HS LANIE Administration Clopidogrel Bisulfate 75 mg 02/01/21 09:00 02/13/21 08:18 Clopidogrel Bisulfate 75 Mg Tablet PO 02/15/21 09:01 75 mg DAILY LANIE Administration Fluoxetine HCl 20 mg 02/01/21 09:00 02/13/21 08:18 Fluoxetine Hcl 20 Mg Capsule PO 20 mg DAILY LANIE Administration Hydralazine HCl 25 mg 02/05/21 22:00 02/11/21 06:16 Hydralazine Hcl 25 Mg Tablet PO 25 mg Q8HR LANIE Administration Hydrochlorothiazide 25 mg 02/04/21 09:00 02/13/21 08:18 Hydrochlorothiazide 25 Mg Tablet PO 25 mg DAILY LANIE Administration Losartan Potassium 100 mg 02/01/21 09:00 02/13/21 08:19 Losartan Potassium 100 Mg Tablet PO 100 mg DAILY LANIE Administration Radiology Results: ITS Impressions Modified Barium Swallow 02/08/21 09:26 IMPRESSION: Oral feedings recommended with limitations as per speech pathologist. Please refer to speech pathologist findings and specific feeding recommendations. Progress Note: A&P Assessment and Plan (1) CVA (cerebral vascular accident): Code(s): I63.9 - Cerebral infarction, unspecified Status: Acute Assessment and Plan: Stroke is being treated with Plavix until 21 day full course along with aspirin and a statin. Pat
--- NOTE | 2021-02-13 10:31 | PCDIET ---
Nutrition Follow-Up Complete: Nutrition Diagnosis: Involuntary weight loss related to CVA as evidenced by reported significant weight loss (14 pounds or 9%) over the past few weeks. Nutrition Goal: Patient to consume 75% of meals/supplements or greater. Goal met. Patient consuming 100% of meals on heart healthy, soft and bite size diet with level 2 liquids. Discussed importance of adhering to thickened liquids after discharge. Patient stated understanding and denies need for further heart healthy education. Frozen Nutritional Treats are being continued TID. Last recorded weight is 63.6 kg. Recommend obtaining new weight. Bowel Motility: Last documented BM on 02/11/21. Labs Reviewed: WBC (10.8), BUN (32) Meds Noted: Norvasc, Hydrochlorothiazide, Lipitor, Cozaar Additional Notes: No documented skin breakdown. Will continue to monitor with same goal. Nutrition Monitoring and Evaluation: Follow up in 7 days.
[2021-02-13 14:00] VITALS: BP 110/50; PULSE 75; RESP 18; TEMP 35.8; O2SAT 97
[2021-02-13 21:45] VITALS: BP 107/47; PULSE 79; RESP 16; TEMP 36.3; O2SAT 96
[2021-02-13] MEDS: ATORVASTATIN 40 MG TABLET 80 MG PO (21:56)
[2021-02-14 06:00] VITALS: BP 110/52; PULSE 88; RESP 16; TEMP 36.3; O2SAT 96
[2021-02-14] MEDS: FLUoxetine HCL 20 MG CAPSULE PO (08:37)
[2021-02-14] MEDS: CLOPIDOGREL BISULFATE 75 MG TABLET PO (08:38)
[2021-02-14] MEDS: LOSARTAN POTASSIUM 100 MG TABLET PO (08:38)
[2021-02-14] MEDS: hydroCHLOROthiazide 25 MG TABLET PO (08:38)
[2021-02-14] MEDS: amLODIPine BESYLATE 5 MG TABLET 10 MG PO (08:38)
[2021-02-14] MEDS: ASPIRIN 81 MG CHEWABLE TABLET PO (08:38)
[2021-02-14 08:47] VITALS: BP 144/80
[2021-02-14 14:00] VITALS: BP 106/63; PULSE 85; RESP 24; TEMP 36.3; O2SAT 98
--- NOTE | 2021-02-14 16:11 | WPDNEURORHBP ---
Subjective Date/time seen: 02/14/21 16:11 Interval history: 60-year-old gentleman with past medical history of hypertension hyperlipidemia who presented to [facility] on 01/21/2021 with slurred speech and right hemiplegia. MRI of the brain showed a small infarct in the posterior limb of the left internal capsule. Patient was placed on aspirin, Plavix and a statin. Patient is to continue on Plavix for a complete 21 day course. Patient voices no concerns regarding discharge this week. Patient denies pain.Patient looking forward to going home to son's house. Review of Systems Review of Systems: All systems reviewed & are unremarkable except as noted in HPI and below Functional Status Ambulation Ability Ability to Ambulate 10 Feet: Independent Ability to Ambulate 50 Feet With 2 Turns: Standby Assistance Ability to Ambulate 150 Feet: Standby Assistance Ambulation Assistive Devices: Cane, [place] Transfers Ability Ability to Transfer In/Out of Chair: Independent Exam Narrative: Exam Narrative: Patient is seen in w/c. Improving right facial droop is noted. There is vocalization but dysarthria is moderately impaired.. Extraocular muscles are intact Neck is supple. Heart rate and rhythm is regular. Lungs are clear. Abdomen is was soft nontender Left upper and left lower extremity strength are 4+ out of 5 . Right upper extremity strength is returning 2+/5. More motor recovery is noted Right lower extremity strength is 3+/5. Minimal subluxation present at the shoulder Patient is starting to speaking in short sentences. Mood is good Objective Data Vital Signs Vital Signs: Vital Signs - 24 hr 02/13/21 21:45 02/14/21 06:00 02/14/21 08:47 Temperature 36.3 C L 36.3 C L Pulse Rate 79 88 Respiratory Rate 16 16 Blood Pressure 107/47 L 110/52 L 144/80 H Pulse Oximetry 96 96 02/14/21 14:00 Temperature 36.3 C L Pulse Rate 85 Respiratory Rate 24 H Blood Pressure 106/63 Pulse Oximetry 98 Intake/Output Intake/Output: Intake & Output 02/11/21 02/12/21 02/13/21 02/14/21 23:59 23:59 23:59 23:59 Intake Total 480 240 720 480 Balance 480 240 720 480 Meds/Results Medications: Active Medications Generic Name Dose Route Start Last Admin Trade Name Freq PRN Reason Stop Dose Admin Acetaminophen 650 mg 02/06/21 14:12 Acetaminophen 325 Mg Tablet PO Q4H PRN Mild Pain (1-3) or Fever Amlodipine Besylate 10 mg 02/01/21 09:00 02/14/21 08:38 Amlodipine Besylate 5 Mg Tablet PO 10 mg DAILY LANIE Administration Aspirin 81 mg 02/01/21 09:00 02/14/21 08:38 Aspirin 81 Mg Chewable Tablet PO 81 mg DAILY LANIE Administration Atorvastatin Calcium 80 mg 01/31/21 21:00 02/13/21 21:56 Atorvastatin 40 Mg Tablet PO 80 mg HS LANIE Administration Clopidogrel Bisulfate 75 mg 02/01/21 09:00 02/14/21 08:38 Clopidogrel Bisulfate 75 Mg Tablet PO 02/15/21 09:01 75 mg DAILY LANIE Administration Fluoxetine HCl 20 mg 02/01/21 09:00 02/14/21 08:37 Fluoxetine Hcl 20 Mg Capsule PO 20 mg DAILY LANIE Administration Hydralazine HCl 25 mg 02/05/21 22:00 02/11/21 06:16 Hydralazine Hcl 25 Mg Tablet PO 25 mg Q8HR LANIE Administration Hydrochlorothiazide 25 mg 02/04/21 09:00 02/14/21 08:38 Hydrochlorothiazide 25 Mg Tablet PO 25 mg DAILY LANIE Administration Losartan Potassium 100 mg 02/01/21 09:00 02/14/21 08:38 Losartan Potassium 100 Mg Tablet PO 100 mg DAILY LANIE Administration Radiology Results: ITS Impressions Modified Barium Swallow 02/08/21 09:26 IMPRESSION: Oral feedings recommended with limitations as per speech pathologist. Please refer to speech pathologist findings and specific feeding recommendations. Progress Note: A&P Assessment and Plan (1) CVA (cerebral vascular accident): Code(s): I63.9 - Cerebral infarction, unspecified Status: Acute Assessment and Plan: Stroke is being treated with Plav
[2021-02-14] MEDS: ATORVASTATIN 40 MG TABLET 80 MG PO (20:42)
[2021-02-14 22:00] VITALS: BP 110/41; PULSE 62; RESP 20; TEMP 36.6; O2SAT 98
[2021-02-15 04:55] LABS: Basophils Absolute Auto 0.2 K/mm3 (0.0-0.1); Basophils Percent Auto 1.6 % (0.2-1.2); Eosinophils Absolute Auto 0.5 K/mm3 (0-0.3); Eosinophils Percent Auto 5.7 % (0-4.4); Hematocrit 50.1 % (42.0-52.0); Hemoglobin 16.8 g/dL (14.0-18.0); Immature Granulocyte Absolute 0.03 K/mm3 (0.00-0.031); Immature Granulocyte Percent A 0.3 % (0-0.5); Lymphocytes Absolute Auto 1.63 K/mm3 (0.9-3.2); Lymphocytes Percent Auto 17.4 % (18.3-44.2); Mean Corpuscular HGB Conc 33.5 g/dl (32-36); Mean Corpuscular Hemoglobin 31.8 pg (26-34); Mean Corpuscular Volume 94.9 fl (80-100); Mean Platelet Volume 9.5 fl (7.4-10.4); Monocytes Percent Auto 10.4 % (2.6-8.5); Neutrophils Absolute Auto 6.1 K/mm3 (1.3-6.7); Neutrophils Percent Auto 64.6 % (45.5-73.1); Platelet Count Result 281 k/mm3 (150-375); Red Blood Count 5.28 M/mm3 (4.6-6.20); Red Cell Distribution Width 12.2 % (11.5-14.5); White Blood Count 9.4 K/mm3 (4.5-10.0)
[2021-02-15 05:10] LABS: Alanine Aminotransferase 67 U/L (4-50); Alkaline Phosphatase 67 U/L (38-126); Anion Gap 2 mmol/L (8-16); Aspartate Amino Transferase 37 U/L (17-59); Bilirubin,Total 0.5 mg/dL (0.2-1.3); Blood Urea Nitrogen 32 mg/dL (9-20); Calcium 9.3 mg/dL (8.4-10.2); Carbon Dioxide 37 mmol/L (22-30); Chloride 98 mmol/L (98-107); Estimated CRCL calculation 68 ml/min; Estimated Glomerular Filt Rate > 60; Glucose 96 mg/dL (75-110); Sodium 137 mmol/L (137-145)
[2021-02-15 06:00] VITALS: BP 128/66; PULSE 75; RESP 20; TEMP 36.3; O2SAT 99
[2021-02-15] MEDS: hydroCHLOROthiazide 25 MG TABLET PO (08:30)
[2021-02-15] MEDS: CLOPIDOGREL BISULFATE 75 MG TABLET PO (08:30)
[2021-02-15] MEDS: amLODIPine BESYLATE 5 MG TABLET 10 MG PO (08:30)
[2021-02-15] MEDS: FLUoxetine HCL 20 MG CAPSULE PO (08:30)
[2021-02-15] MEDS: LOSARTAN POTASSIUM 100 MG TABLET PO (08:30)
[2021-02-15] MEDS: ASPIRIN 81 MG CHEWABLE TABLET PO (08:30)
--- NOTE | 2021-02-15 10:35 | PM.DS ---
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 Patient will receive PT OT speech (2) Dysphagia: Code(s): R13.10 - Dysphagia, unspecified Status: Acute Assessment and Plan: Jesus is on a soft bite size meals with nectar thickened liquids. Speech will continue to work with oral motor exercises and speech. Goal is to increase diet but patient is essentially edentulous MBS 02/08/21 No change in diet. Patient unable to advance diet (3) Right hemiplegia: Code(s): G81.91 - Hemiplegia, unspecified affecting right dominant side Status: Acute Assessment and Plan: PT and OT (4) Tobacco abuse: Code(s): Z72.0 - Tobacco use Status: Acute Assessment and Plan: Patient does not want treatment. (5) Hyperlipidemia: Code(s): E78.5 - Hyperlipidemia, unspecified Status: Acute Assessment and Plan: Atorvastin (6) Hypertension: Code(s): I10 - Essential (primary) hypertension Status: Acute Assessment and Plan: Norvasc 10 mg daily, hydralazine 25 mg q.8 hours . hydrochlorothiazide 25 mg daily. Cozaar 100 mg daily Parameters are in place. Adjustments of decreasing doses have been made with good maintenance of BP. Hydralazine has not been given for over 3 days .Will discontinue. (7) Depression as late effect of cerebrovascular accident (CVA): Code(s): I69.398 - Other sequelae of cerebral infarction; F06.31 - Mood disorder due to known physiological condition with depressive features Status: Acute DS: Summary Hospital Course Hospital Course: Chief Complaint: Left internal capsular infarct with right hemiplegia aphasia dysphagia Narrative: 60-year-old male with past medical history of hypertension and hyperlipidemia who presented to [facility] on 01/21/2021 with slurred speech and right-sided weakness. NIH SS upon arrival was 10. WORKUP CT of the brain showed no acute intracranial hemorrhage and a chronic right occipital lobe infarct. 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 MRI of the brain showed a small acute ischemic infarct in the posterior limb of the left internal capsule. Andi showed no PFO or thrombus. Fes was performed and the patient was placed on pureed diet with nectar thickened liquids. Neurology was consulted and patient was placed on aspirin, Plavix, and Atrovent statin. Patient is severely dysarthric and communicating via white board he is alert and oriented x3. Patient demonstrates dense right UE hemiplegia with mild/mod LE hemipegia. patient has decreased balance and safety awareness. He will be discharged to rehab on Plavix and will remain on Plavix until completing a 21 day course The patient tested negative for COVID on 01/22/2021 and 01/30/2021. Therapy was initiated at the acute care facility and the patient transferred to us from [facility] on 01/31/2021 REHAB HOSPITAL COURSE: BP MGMT: ADJUSTMENTS OF MEDICATION NEEDED DOWNGRADING. STABLE AT DISCHARGE . PATIENT WILL GO HOME ON NORVASC 10 MG DAILY, HYDROCHLOROTHIAZIDE 25 MG DAILY, LOSARTAN 100 MG DAILY SWALLOWING:. PATIENT IS ON SOFT BITE SIZED DIET WITH THICKENED LIQUIDS TO NECTAR THICK. PATIENT IS AT RISK OF ASPIRATION. CVA TREATMENT: PATIENT HAS COMPLETED A 21 FULL DAY COURSE OF PLAVIX. PATIENT WILL GO HOME ON ASPIRIN 81 MG DAILY AND LIPITOR 80 MG Q.H.S. PATIENT WILL CONTINUE WITH HOME HEALTH CARE PT OT SPEECH
== END 2021-02-15 13:58 | disposition home health service (06) | DRG 57 ==
PROVIDERS: Admitting Provider Physical Medicine & Rehabilitation; Visit Provider Physical Medicine & Rehabilitation
DX: I69.351 Hemiplegia and hemiparesis following cerebral infarction affecting right dominant side (principal); I69.320 Aphasia following cerebral infarction; I69.391 Dysphagia following cerebral infarction; I69.392 Facial weakness following cerebral infarction; I69.398 Other sequelae of cerebral infarction; F06.31 Mood disorder due to known physiological condition with depressive features; R13.10 Dysphagia, unspecified; I10 Essential (primary) hypertension; E78.5 Hyperlipidemia, unspecified; F17.290 Nicotine dependence, other tobacco product, uncomplicated
CPT/HCPCS: 36415; 80053; 80061; 85025; 92507; 92523; 92526; 92610; 92611; 97110; 97112; 97116; 97161; 97166; 97530; 97535; 97542; A4565; A9270; J1650